=== PATIENT | male | born 1950 | race Caucasian/White ===

== ENCOUNTER 2019-02-08 14:37 | Inpatient (IN) ==
[2019-02-08] MEDS ORDERED: Acetaminophen 325 MG TABLET PO PRN (17:56)
[2019-02-08] MEDS ORDERED: *HR* OxyCODONE Immed Rel 5 MG TABLET PO PRN (17:56)
[2019-02-08] MEDS ORDERED: Naloxone 0.4 MG/ML INJ IVP PRN (17:56)
[2019-02-08] MEDS ORDERED: Ondansetron 4 MG/2 ML VIAL IVP PRN (17:56)
[2019-02-08] MEDS ORDERED: 0.9 % Sodium Chloride 1,000 ML IVC SCH (18:00)
[2019-02-08] MEDS ORDERED: Albuterol 2.5 MG/3 ML NEBULIZER IH PRN (18:05)
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
[2019-02-08 19:41] LABS: Basophils % 0.1 %; Hematocrit 29.7 % (37.5-50.1); Hemoglobin 9.3 g/dL (12.9-16.9); Immature Granulocytes % 0.5 % (0-4); Lymphocytes % 12.3 %; Mean Corpuscular HGB Conc 31.3 g/dL (31.6-35.5); Mean Corpuscular Hemoglobin 26.6 pg (28.0-33.3); Mean Corpuscular Volume 84.9 fL (83.0-100.0); Mean Platelet Volume 10.1 fL (9.4-12.4); Monocytes # 0.6 K/mcL (0.0-1.3); Monocytes % 7.3 %; Neutrophils # 6.7 K/mcL (1.6-8.9); Platelet Count 138 K/mcL (140-400); Red Cell Distribution Width 19.8 % (11.5-14.5); Segmented Neutrophils % 79.8 %
[2019-02-08 19:51] LABS: BUN/Creatinine Ratio 70 (6-26); Blood Urea Nitrogen 82 mg/dL (8-23); Calcium 7.1 mg/dL (8.6-10.3); Carbon Dioxide 16 mEq/L (23-29); Chloride 113 mEq/L (98-107); Glucose 143 mg/dL (70-105); INR 1.6; Osmolality,Calculated 317 (280-300); Potassium 4.5 mEq/L (3.5-5.1); Prothrombin Time 18.2 Seconds (9.4-12.1); Sodium 140 mEq/L (136-145); eGFR For Non-African Americans > 60 (> 60)
[2019-02-08] MEDS: Sucralfate 1 GM TABLET PO SCH (20:48)
[2019-02-08] MEDS: *HR* HYDROcodone/Acet 5/325 mg TABLET PO PRN (20:53)
[2019-02-09 02:02] LABS: Bilirubin,Urine Negative (Negative); Blood,Urine Moderate (Negative); Clarity,Urine Clear (Clear); Color,Urine Yellow (Yellow); Glucose,Urine (UA) Normal (Normal); Ketones,Urine Negative (Negative); Leukocyte Esterase,Urine Negative (Negative); Nitrite,Urine Negative (Negative); PH,Urine 5.5 pH Units (5.0-8.0); Protein,Urine Negative (Neg-Trace); Specific Gravity,Urine 1.017 (1.010-1.025); Urobilinogen,Urine Normal (Normal)
[2019-02-09 02:05] LABS: Bacteria,Urine None Seen per hpf (None-Few); Hyaline Casts,Urine None Seen per lpf (None-Few); RBC,Urine 15-30 per hpf (0-3); Squamous Epithelial Cell,Urine Few per lpf (None-Few); WBC,Urine 0-3 per hpf (0-3)
[2019-02-09] MEDS ORDERED: *HR* Heparin 5,000 UNIT/ML VIAL IVP PRN (03:47)
[2019-02-09] MEDS ORDERED: 0.9 % Sodium Chloride 250 ML IVC ONE (04:09)
[2019-02-09] MEDS: Heparin 25,000 UNIT/250 ML D5W 25,000 UNIT/250 ML IV.SOLN IVC SCH (04:47)
[2019-02-09 05:04] LABS: Hematocrit 26.6 % (37.5-50.1); Hemoglobin 8.4 g/dL (12.9-16.9); Immature Granulocytes % 0.5 % (0-4); Lymphocytes # 0.8 K/mcL (0.6-4.6); Lymphocytes % 12.1 %; Mean Corpuscular HGB Conc 31.6 g/dL (31.6-35.5); Mean Corpuscular Hemoglobin 26.8 pg (28.0-33.3); Mean Corpuscular Volume 84.7 fL (83.0-100.0); Mean Platelet Volume 9.6 fL (9.4-12.4); Monocytes # 0.5 K/mcL (0.0-1.3); Monocytes % 7.3 %; Neutrophils # 5.2 K/mcL (1.6-8.9); Platelet Count 107 K/mcL (140-400); Red Blood Count 3.14 M/mcL (4.19-5.50); Red Cell Distribution Width 19.7 % (11.5-14.5); Segmented Neutrophils % 80.1 %
[2019-02-09 05:15] LABS: Heparin anti-factor XA UFH 0.02 IU/mL (0.30-0.70); INR 1.8; Prothrombin Time 19.9 Seconds (9.4-12.1)
[2019-02-09 05:26] LABS: BUN/Creatinine Ratio 67 (6-26); Blood Urea Nitrogen 74 mg/dL (8-23); Calcium 7.2 mg/dL (8.6-10.3); Carbon Dioxide 18 mEq/L (23-29); Chloride 113 mEq/L (98-107); Glucose 72 mg/dL (70-105); Magnesium 2.3 mg/dL (1.6-2.6); Osmolality,Calculated 310 (280-300); Phosphorous 3.4 mg/dL (2.7-4.5); Potassium 3.8 mEq/L (3.5-5.1); Sodium 140 mEq/L (136-145); eGFR For Non-African Americans > 60 (> 60)
[2019-02-09 05:41] LABS: Thyroid Stimulating Hormone 5.854 mcIU/mL (0.340-5.600)
[2019-02-09] MEDS: Sucralfate 1 GM TABLET PO SCH ×4 (08:13→20:12)
--- NOTE | 2019-02-09 13:22 | Palliative - Consult Note ---
Date of Encounter: 02/09/19 Time of Encounter: 10:00 - Assessment and Plan (1) Weakness Current Visit: No Status: Acute Assessment and plan: Patient reports increased weakness, with frequent falls and losing balance at home. PT/OT/social work consulted. Patient will need [facility] placement at discharge. (2) Palliative care encounter Current Visit: Yes Status: Acute (3) Lung cancer Current Visit: No Status: Acute Assessment and plan: Patient is a current oncology patient of [facility] outpatient. Desires continued cancer treatment at this time. Qualifiers: Laterality: left Lung location: overlapping sites Qualified Code(s): C34.82 - Malignant neoplasm of overlapping sites of left bronchus and lung (4) Pleural effusion Current Visit: No Status: Acute Assessment and plan: Patient reports having frequent recurrent pleural effusions. Patient has history of Pleurx drain. Previous Pleurx was removed due to patient being uncomfortable with drain in place. Patient reports he is agreeable to being "tapped." (5) COPD (chronic obstructive pulmonary disease) Current Visit: No Status: Chronic Qualifiers: COPD type: unspecified COPD Qualified Code(s): J44.9 - Chronic obstructive pulmonary disease, unspecified (6) Malignant cachexia Current Visit: No Status: Acute Assessment and plan: Patient reports lack of appetite. Patient ate 100% of lunch. (7) Goals of care, counseling/discussion Current Visit: No Status: Acute Assessment and plan: Conducted 60 minutes meeting with patient regarding goals of care. Patient reports he wants to continue to try living. Patient desires to continue cancer treatment at this time. Patient reports understanding that cancer treatment is palliative in nature. Patient is interested in discharge plan to go to [facility], unsure whether rehabilitation versus hospice. Patient desires to remain full code at this time. Patient was able to verbalize risks associated with compressions. Patient was previously a DNR order; however, patient reports trying to build relationship with daughters at this taty e. Patient desires to continue living and is okay with CPR for opportunity to spend time with great-grandchildren. Patient's only contact information in the computer at this time is Gopal Pedroza, patient's friend. He is unsure of patient's daughter's phone numbers. Palliative care will continue to follow been worked us with this patient, in regards to symptom management discharge planning. (8) Severe protein-calorie malnutrition Current Visit: No Status: Acute (9) Non-small cell lung cancer (NSCLC) Current Visit: No Status: Chronic Qualifiers: Laterality: left Qualified Code(s): C34.92 - Malignant neoplasm of unspecified part of left bronchus or lung (10) Generalized pain Current Visit: No Status: Acute Assessment and plan: Patient reports bilateral elbow pain. Patient has utilized 1 dose [place] and 0 doses of oxycodone this admission. Continue when necessary pain medication as ordered. (11) Dehydration Current Visit: Yes Status: Acute Assessment and plan: Receiving IV fluids at this time. (12) DVT (deep venous thrombosis) Current Visit: Yes Status: Suspected Assessment and plan: During assessment patient's profound for left lower extremity performed. Patient found to have positive DVT. Patient has heparin drip infusing. Qualifiers: DVT location: lower extremity Affected thrombotic vein of extremity: unspecified vein of extremity Chronicity: unspecified Laterality: left Qualified Code(s): I82.402 - Acute embolism and thrombosis of unspecified deep veins of left lower extremity (13) Anxiety Current Visit: Yes Status: Acute Assessment and plan: Patient apparent to have increased anxiety. We will add low-dose Ativan when necessary. Palliative-CN HPI - Data of Consult Patient: new to practice Consult date: 02/08/19 Requesting Physician: Tiffanie Rodriguez Primary Care Provider: Jerrod Valentino MD - Consult Narrative Palliative Care/Comfort Measures: Palliative care Reason for consult: Code change/terminal illness/palliative chemotherapy cur rently. History of present illness: Mr. Hoover is a 68 year old male whom arrived at [facility] as a transfer from [facility] post fall, EMS found patient stuck between while in bed. Patient's past medical history includes arthritis, cancer, COPD, hyperlipidemia, hypertension, myocardial infarction, hepatitis, irritable bowel syndrome, blood thinners, and DVT. Patient found to be incredibly dehydrated, Acute respiratory failure with hypoxia, generalized pain, hypothyroid, malignant pleural effusion, severe protein calorie malnutrition with noted BMI of 12, weakness, coronary arteries disease, COPD, non-small cell lung cancer, and positive for DVT. Patient is a known patient of [facility] from Jan, 2019 appointment. Patient was originally diagnosed with small cell lung cancer, stage IV adenocarcinoma, at [facility] in September 2018. Patient reports he has not been eating or drinking regularly. Patient has a friend and ex-girlfriend who lives with him, reports not caring for him; patient is very distraught in this regard. Chest x-ray shows nonchanging left pleural effusion [address] shows chronic changes. Social work has been consult, APS will make contacted. Palliative care consult at code change/terminal illness/palliative chemotherapy currently. Patient sitting up in bed, prepping for ultrasound of left lower extremity upon arrival for assessment. Patient reports pain in bilateral elbows due to skin coming off elbows, and images in place. She denies anxiety, shortness of breath, nausea or vomiting. Patient admits to lack of appetite. She reports she was previously in rehabilitation in [facility] Reports facility and rule straight him crazy. Patient also admits he wants to continue to try living, not willing to accept her modality at this time. Patient reports he has 2 daughters, Ariadna and Jaylin, however trying to rebuild relationship with them. Patient reports he previously had DO NOT RESUSCITATE status however now has great-grandchildren and feels necessary to live for them. Patient is alert and oriented 3, however had difficulty confirming orientation to situation. Patient repetitively returns to discussion regarding living status. Patient admits that he will no longer be able to live in his previous home. CC: Tiffanie Rodriguez - Time Spent with Patient Time: Total time spent is greater than 50% in coordination of care (as documented) at patient's floor/unit and/or counseling patient: Time with patient: 60 minutes Past Med Surg Social Fam HX - Past Medical History Medical history: arthritis, cancer, COPD, hyperlipidemia, hypertension, myocardial infarction, other Additional medical history: hepatitis, IBS, blood thinners Psychiatric history: no psych history - Past Surgical History Additional surgical history: 1 cardiac stent, arthroscopy of the knee - Social History Smoking Status: Current every day smoker Smokeless Tobacco Status: No Alcohol use: none Drug use: none - Family History Mother Living Status: Hx Family Cardiac Disorders: Yes (HTN, CHF) Father Living Status: Brother Hx Family Cancer: Yes (Brain, colon) Hx Family Endocrine Disorder: Yes (DM) Sister Hx Family Cancer: Yes (Breast) Daughter Hx Family Cardiac Disorders: Yes (HTN, murmur) Medications and Allergies Warfarin [Coumadin] 3.5 mg PO HS 06/12/17 [History] Atorvastatin Calcium [Lipitor] 80 mg PO HS 11/13/18 [History] Metoprolol [Lopressor] 25 mg PO DAILY 11/13/18 [History] Albuterol Neb [Proventil Neb] 2.5 mg IH Q2H PRN inhsol 11/15/18 [Rx] Diphenoxylate/Atropine [Lomotil 2.5 mg/0.025 mg] 1 tab PO QID 12/13/18 [History] Omeprazole [PriLOSEC] 20 mg PO DAILY 12/13/18 [History] Sucralfate [Carafate] 1 gm PO QIDAC 12/13/18 [History] Allergy/AdvReac Type Severity Reaction Status Date / Time No Known Allergies Allergy Verified 01/29/19 13:07 - Constitutional Constitutional ROS PAL: decreased appetite, frequent falls, weight loss - EENT Eyes: no change in vision, no discharge, no dry eye - Cardiovascular Cardiovascular ROS: no chest pain - Respiratory Respiratory: no dyspnea - Gastrointestinal Gastrointestinal: diarrhea, no nausea, no vomiting - Genitourinary Genitourinary ROS male: no difficulty urinating - Musculoskeletal Musculoskeletal ROS IM: muscle weakness, myalgias - Integumentary ROS Integumentary: dry skin, wounds, no unusual bruising - Neurological Neurological ROS: lack of coordination, weakness - Psychiatric Psychiatric general PM: anxiety Palliative Care-Exam - Constitutional Vitals: Temp Pulse Resp BP Pulse Ox 97.5 F L 56 16 102/53 96 02/09/19 11:00 02/09/19 11:00 02/09/19 11:00 02/09/19 11:00 02/09/19 11:00 General appearance: Present: mild distress, thin - Head Head Exam: Present: normal inspection - Eye Eye exam: Present: EOMI, normal appearance. Absent: periorbital swelling, periorbital tenderness - ENT ENT exam: Present: mucous membranes dry - Expanded ENT Exam Mouth Exam: Present: dry mucosa. Absent: drooling - Neck Neck exam: Present: normal inspection - Respiratory Respiratory exam: Present: accessory muscle use, CTAB. Absent: respiratory distress - Cardiovascular Cardiovascular exam: Present: +S1, +S2 - GI/Abdominal Exam GI/Abdominal exam: Present: diminished bowel sounds, soft. Absent: distended, tenderness - Rectal Rectal Exam: Present: deferred - Extremities Exam Extremities exam: Present: calf tenderness (left, positive for DVT), pedal edema (LLE only.) - Neurological Exam Neurological exam: Present: alert, oriented X3. Absent: facial droop, speech deficit - Expanded Neurological Exam Coma Scale Eye Opening: Spontaneous Coma Scale Motor Response: Obeys Commands Coma Scale Verbal Response: Oriented Coma Scale Total: 15 - Psychiatric Psychiatric exam: Present: anxious Internal Medicine - CN: Reslt - Labs CBC & Chem 7: 02/09/19 04:42 02/09/19 04:42 Labs: Short CBC 02/08/19 02/09/19 Range/Units 19:01 04:42 WBC 8.5 6.5 (4.3-11.1) K/mcL Hgb 9.3 L 8.4 L (12.9-16.9) g/dL Hct 29.7 L 26.6 L (37.5-50.1) % Plt Count 138 L 107 L (140-400) K/mcL Neutrophils # 6.7 5.2 (1.6-8.9) K/mcL BMP 02/08/19 02/09/19 19:01 04:42 Sodium 140 140 Potassium 4.5 3.8 Chloride 113 H 113 H Carbon Dioxide 16 L 18 L BUN 82 H 74 H Creatinine 1.17 1.10 Glucose 143 H 72 Calcium 7.1 L 7.2 L Urine 02/09/19 Range/Units 01:44 Urine Color Yellow (Yellow) Urine Clarity Clear (Clear) Urine pH 5.5 (5.0-8.0) pH Units Ur Specific [place] 1.017 (1.010-1.025) Urine Protein Negative (Neg-Trace) mg/dL Urine Glucose (UA) Normal (Normal) mg/dL - ABG Interpretation ABG results: PT/INR, D-dimer PT 19.9 Seconds (9.4-12.1) H 02/09/19 04:42 - Impressions Impressions Head CT 02/08/19 19:00 IMPRESSION: No acute intracranial abnormality. Mild generalized cerebral atrophy and mild chronic small vessel white matter ischemic changes. D/ / Jose Barreto MD / Jose Barreto MD Interpreting Provider: Jose Barreto MD Chest X-Ray 02/09/19 08:00 IMPRESSION: Unchanged appearance of the chest over the past 11 days. Unchanged moderate size left pleural effusion with adjacent left perihilar and basilar airspace disease. D/ / Brennon Anderson MD / Brennon Anderson MD Interpreting Provider: Brennon Anderson MD Consult Discharge Plan - Plan Referrals: Jerrod Valentino MD [Primary Care Provider] - Palliative Quality Palliative Quality: Screen for Code Status: Yes, Screen for Goals of Care: Yes, Screen for Pain: Yes, If Pain Regimen Started, Initiate Bowel Regimen: NA, Screen for Nausea/Vomitting: Yes Code Status: 02/08/19 17:56 Resuscitation Status: Active [RES] Routine Comment: Resuscitation Status: Full Code
--- NOTE | 2019-02-09 13:51 | Internal Med Progress Note ---
Hospitalist Progress Note - Encounter Date of Encounter: 02/09/19 Time of Encounter: 09:00 - Subjective Interval History: Patient was seen and examined at bedside. Reports that he used to have a Pleurx catheter however the output from the catheter had decreased so as per his request it was removed. He follows up with oncology here at [facility] er. Last appointment was about a week ago. He developed shortness of breath and as per medical chart he was found stuck between the the bed so he was transferred to [facility] from [place]. He denies any head trauma, loss of function of his extremities, loss of bowel or bladder function. He has no anxiety, shortness of breath, nausea or vomiting. Patient admits to lack of appetite and significant weight loss in the past few months. - Exam Vitals: Temp Pulse Resp BP Pulse Ox 97.5 F L 56 16 102/53 96 02/09/19 11:00 02/09/19 11:00 02/09/19 11:00 02/09/19 11:00 02/09/19 11:00 Exam: General: Patient is alert, oriented, no acute distress, cachectic Head: atraumatic, normocephalic, Eye: normal appearance, PERRL, no scleral icterus, no conjunctival injection ENT: Poor dentition, dry mucous membranes. Neck: normal inspection, trachea midline, full ROM, Chest: normal inspection, symmetric chest rise Respiratory: Decreased breath sounds left greater than right, crackles throughout the left posterior lung field. A list to percussion of the left lower lung field Cardiovascular: Regular rate and rhythm. s1 and s2 No clicks, rubs, gallops, or murmors. Abdomen: Scaphoid abdomen, Bowel sounds present normoactive x-4 quadrants. Abdomen is soft, nondistended. no Epigastric tenderness. No guarding or rebound. No organomegaly noted, musculoskeletal: Spontaneously moving all extremities. no edema, left lower extremity from feet up to mid thigh has increased swelling as compared to the right lower extremity, nontender to palpation, no color change Skin: warm, dry, intact. Multiple ecchymosis and bruising in all extremities at different stages of healing. Neuro: Alert and oriented x4. No focal deficit Psych: Patient's affect is normal . - Assessment and Plan (1) Malignant pleural effusion Current Visit: No Status: Acute Assessment and Plan: Malignant left sided pleural effusion History of recurrent pleural effusion secondary to malignancy. As per oncology note on 01/29/19- "Recurrent left pleural effusion. He had a chest tube the hospital October 2018 which was converted to a Pleurx catheter. According to him the Pleurx drainage has reduced and subsequently Pleurx catheter was removed at patient's request" Continue with oxygen via nasal cannula, currently not in respiratory distress IR has been consult for thoracentesis will follow recommendations (2) Acute respiratory failure with hypoxia Current Visit: No Status: Acute Assessment and Plan: Secondary to malignant pleural effusion. Patient has a history of lung cancer appears he has a pleural effusion on chest x-ray he was 90% on room air requiring oxygen supplementation. He will need a thoracentesis per IR Continue with oxygen via nasal cannula and keep sats above 92%. (3) DVT (deep venous thrombosis) Current Visit: Yes Status: Suspected Assessment and Plan: Pt. is Positive for DVT in the Left CVF,SFV,Popliteal,PTV and Peroneal Veins. Continue with heparin drip as CT head was negative for any acute abnormalities. Recent CT angiogram of the chest was negative for pulmonary embolism. (4) Non-small cell lung cancer (NSCLC) Current Visit: No Status: Chronic Assessment and Plan: Stage IV adenocarcinoma of the lung PET scan at [facility] 10/21/2018 showed large 4 cm cavitary lesion right upper lobe and left pleural effusion with multiple foci of increased FDG. Hypermetabolic [place] in the left upper load is indeterminate. Hypermetabolic left internal mammary and subpectoral lymph nodes. MRI brain on 11/12/[address] scan chest abdomen pelvis on 11/11/2018 showed thick walled cavitary nodule posterior right upper lobe 2.8 x 1.8 cm. Large left pleural effusion receiving Pembrolizumab 200 mg IV every 3 weeks cycle 2018 Recurrent left pleural effusion had chest tube October 2018 which is converted to Pleurx catheter which was removed at patient's request Follows with oncology [facility] last appointment was 01/29/2019 brain MRI on 10/2090- IMPRESSION: No intracranial metastasis detected. oncology consulted will follow recs (5) Severe protein-calorie malnutrition Current Visit: No Status: Acute Assessment and Plan: Patient BMI is 12 he is not unit several days face he has been having diarrhea had a 40 pound weight loss over the sixth months. prealbumin 7.6 Nutritional services consulted Continue with gentle hydration Watch electrolytes as he is high risk for refeeding syndrome. (6) CAD (coronary artery disease) Current Visit: No Status: Chronic Assessment and Plan: History of CAD with stent placements Continue with home medications if not contraindicated (7) COPD (chronic obstructive pulmonary disease) Current Visit: No Status: Chronic Assessment and Plan: Not an exacerbation Patient continues to smoke encouraged patient to stop smoking nicotine patch Continue with oxygen and bronchodilators as needed (8) Dehydration Current Visit: Yes Status: Acute Assessment and Plan: Continue with gentle hydration Avoid fluid overload. (9) Generalized pain Current Visit: No Status: Acute Assessment and Plan: Continue with pain management medications Palliative was consulted will follow recommendations Hold pain medications for respiratory rate less than 12 and saturations less than 92%. (10) Hypothyroidism Current Visit: No Status: Acute Assessment and Plan: Continue with Synthroid (11) Goals of care, counseling/discussion Current Visit: No Status: Acute Assessment and Plan: Discussed CODE STATUS with patient at length and he wishes to be full code Palliative was consulted for goals of care and pain management Prognosis is poor (12) Tobacco dependence Current Visit: No Status: Chronic Assessment and Plan: Patient states that he used to be a pack-a-day smoker for 40 years now healing smokes 3-4 cigarettes a day encouraged patient to stop smoking offer nicotine patch which he declined (13) DVT prophylaxis Current Visit: No Status: Acute Assessment and Plan: On heparin drip - Time Spent with Patient Total time spent is greater than 50% in coordination of care (as documented) at patient's floor/unit and/or counseling patient: Internal Medicine: Result - Labs CBC & Chem 7: 02/09/19 04:42 02/09/19 04:42 Labs: Short CBC 02/08/19 02/09/19 Range/Units 19:01 04:42 WBC 8.5 6.5 (4.3-11.1) K/mcL Hgb 9.3 L 8.4 L (12.9-16.9) g/dL Hct 29.7 L 26.6 L (37.5-50.1) % Plt Count 138 L 107 L (140-400) K/mcL Neutrophils # 6.7 5.2 (1.6-8.9) K/mcL BMP 02/08/19 02/09/19 19:01 04:42 Sodium 140 140 Potassium 4.5 3.8 Chloride 113 H 113 H Carbon Dioxide 16 L 18 L BUN 82 H 74 H Creatinine 1.17 1.10 Glucose 143 H 72 Calcium 7.1 L 7.2 L Urine 02/09/19 Range/Units 01:44 Urine Color Yellow (Yellow) Urine Clarity Clear (Clear) Urine pH 5.5 (5.0-8.0) pH Units Ur Specific [place] 1.017 (1.010-1.025) Urine Protein Negative (Neg-Trace) mg/dL Urine Glucose (UA) Normal (Normal) mg/dL - ABG Interpretation ABG results: PT/INR, D-dimer PT 19.9 Seconds (9.4-12.1) H 02/09/19 04:42 - Impressions Impressions Head CT 02/08/19 19:00 IMPRESSION: No acute intracranial abnormality. Mild generalized cerebral atrophy and mild chronic small vessel white matter ischemic changes. D/ / Jose Barreto MD / Jose Barreto MD Interpreting Provider: Jose Barreto MD Chest X-Ray 02/09/19 08:00 IMPRESSION: Unchanged appearance of the chest over the past 11 days. Unchanged moderate size left pleural effusion with adjacent left perihilar and basilar airspace disease. D/ / Brennon Anderson MD / Brennon Anderson MD Interpreting Provider: Brennon Anderson MD Consult Discharge Plan - Plan Referrals: Jerrod Valentino MD [Primary Care Provider] - (3) DVT (deep venous thrombosis) Qualifiers: DVT location: lower extremity Affected thrombotic vein of extremity: popliteal Chronicity: acute Laterality: left Qualified Code(s): I82.432 - Acute embolism and thrombosis of left popliteal vein (4) Non-small cell lung cancer (NSCLC) Qualifiers: Laterality: left Qualified Code(s): C34.92 - Malignant neoplasm of unspecified part of left bronchus or lung (6) CAD (coronary artery disease) Qualifiers: Coronary Disease-Associated Artery/Lesion type: unspecified vessel or lesion type [place] vs. transplanted heart: [place] heart Associated angina: without angina Qualified Code(s): I25.10 - Atherosclerotic heart disease of [place] coronary artery without angina pectoris (7) COPD (chronic obstructive pulmonary disease) Qualifiers: COPD type: unspecified COPD Qualified Code(s): J44.9 - Chronic obstructive pulmonary disease, unspecified (10) Hypothyroidism Qualifiers: Hypothyroidism type: unspecified Qualified Code(s): E03.9 - Hypothyroidism, unspecified
[2019-02-09] MEDS ORDERED: 0.9 % Sodium Chloride 1,000 ML IVC SCH (14:15)
[2019-02-09] MEDS: *HR* HYDROcodone/Acet 5/325 mg TABLET PO PRN (15:56)
[2019-02-09] MEDS ORDERED: Warfarin perPT PO PRN (18:00)
[2019-02-09] MEDS: *HR* Heparin 5,000 UNIT/ML VIAL IVP PRN (20:12)
[2019-02-10 01:52] LABS: Hematocrit 27.4 % (37.5-50.1); Hemoglobin 8.6 g/dL (12.9-16.9); Mean Corpuscular HGB Conc 31.4 g/dL (31.6-35.5); Mean Corpuscular Hemoglobin 26.5 pg (28.0-33.3); Mean Corpuscular Volume 84.3 fL (83.0-100.0); Mean Platelet Volume 9.7 fL (9.4-12.4); Platelet Count 121 K/mcL (140-400); Red Blood Count 3.25 M/mcL (4.19-5.50); Red Cell Distribution Width 19.7 % (11.5-14.5)
[2019-02-10 01:58] LABS: VBG Ionized Calcium 1.12 mmol/L (1.15-1.35)
[2019-02-10 02:12] LABS: Alanine Aminotransferase 44 Units/L (7-52); Albumin 2.1 g/dL (3.5-5.7); Albumin/Globulin Ratio 0.7 (1.1-2.2); Alkaline Phosphatase 125 Units/L (34-104); Aspartate Amino Transferase 59 Units/L (13-39); BUN/Creatinine Ratio 62 (6-26); Bilirubin,Total 0.3 mg/dL (0.3-1.0); Blood Urea Nitrogen 53 mg/dL (8-23); Calcium 6.7 mg/dL (8.6-10.3); Carbon Dioxide 20 mEq/L (23-29); Chloride 113 mEq/L (98-107); Globulin 2.9 g/dL (2.4-3.5); Glucose 58 mg/dL (70-105); Magnesium 2.1 mg/dL (1.6-2.6); Osmolality,Calculated 302 (280-300); Phosphorous 2.1 mg/dL (2.7-4.5); Potassium 3.6 mEq/L (3.5-5.1); Sodium 140 mEq/L (136-145); eGFR For Non-African Americans > 60 (> 60)
[2019-02-10] MEDS: *HR* Heparin 5,000 UNIT/ML VIAL IVP PRN (03:41)
[2019-02-10] MEDS: *HR* HYDROcodone/Acet 5/325 mg TABLET PO PRN (05:38)
[2019-02-10] MEDS: Sucralfate 1 GM TABLET PO SCH ×4 (09:06→22:20)
[2019-02-10] MEDS: Heparin 25,000 UNIT/250 ML D5W 25,000 UNIT/250 ML IV.SOLN IVC SCH ×2 (09:07→21:45)
[2019-02-10 09:23] LABS: INR 1.6; Prothrombin Time 17.6 Seconds (9.4-12.1)
--- NOTE | 2019-02-10 12:31 | Oncology Inp Consult Note ---
<Hansel Cates - Last Filed: 02/10/19 17:49> Date of Encounter: 02/10/19 - Data of Consult Requesting Physician: Tiffanie Rodriguez Primary Care Provider: Jerrod Valentino MD Medications and Allergies Atorvastatin Calcium [Lipitor] 80 mg PO HS 11/13/18 [History] Bupropion HCl [Wellbutrin Xl] 300 mg PO DAILY 02/10/19 [History] Buspirone HCl [Buspar] 15 mg PO BID 02/10/19 [History] Folic Acid 1 mg PO DAILY 02/10/19 [History] Ipratropium/Albuterol Neb [Duoneb] 3 ml IH Q8HR PRN 02/10/19 [History] Levothyroxine [Synthroid] 50 mcg PO QAM 02/10/19 [History] Metoprolol XL (24 HR) Succ [Toprol XL] 25 mg PO DAILY 02/10/19 [History] Oxycodone HCl/Acetaminophen [Percocet 5-325 mg Tablet] 1 tab PO Q4H PRN 02/10/19 [History] Sertraline [Zoloft] 50 mg PO DAILY 02/10/19 [History] Warfarin [Coumadin] 1 mg PO DAILY 02/10/19 [History] Allergy/AdvReac Type Severity Reaction Status Date / Time No Known Allergies Allergy Verified 01/29/19 13:07 Consult Discharge Plan - Plan Referrals: Jerrod Valentino MD [Primary Care Provider] - Inpatient Charges Provider: Dr. Bhavna Cates Consult - Inpatient: [id number] - Attending Attestation I examined this patient and my medical decision-making was reviewed with the Advanced Practice Nurse. I agree with the documented findings, disposition and treatment plan as described except to the extent set forth below. -Patient with Stage IV Adenocarcinoma of the lung with progressive disease -Admitted for weakness and found to have a LLE DVT, now on a heparin gtt -We discuss palliative care and hospice with him today and he is agreeable to have palliative care come by to discuss future goals of care -Will perform an anemia w/u -Thoracentesis attempted but not done as pleural fluid was not seen. <Renu Hester - Last Filed: 02/10/19 18:22> Date of Encounter: 02/10/19 Time of Encounter: 11:10 Assessment and Plan (1) Non-small cell lung cancer (NSCLC) Status: Chronic Assessment and plan: Stage IV adenocarcinoma lung Patient was followed for lung nodules for long time. On 12/14/2017 left upper lobe 1.1 cm nodule SUV 3.6 has grown in size since May 2016. Left upper lobe 6 mm nodule and a new right middle lobe 1.4 cm cavitary nodule SUV 7.7 since May 2016. Focus of hypermetabolic some GE junction SUV 5.4 More recent PET scan at [facility] in [place] 10/21/2018 showed large about 4cm cavitary lesion right upper lobe and left pleural effusion with multiple foci of increased FDG. Hypermetabolic opacity in the left upper lobe is indeterminate. Hypermetabolic left internal mammary and subpectoral lymph nodes. Reviewed [facility] notes by Dr. Grant Fuller. Metastatic lung adenocarcinoma with positive left pleural effusion for K-michael and ST-T 11 mutation. PD L1 positive. 40 pound weight loss. He wants to start him on Pembrolizumab MRI brain on 11/12/[address] scan chest abdomen and pelvis on 11/11/2018 showed thick walled cavitary nodule posterior right upper lobe 2.8 x 1.8 cm. Large left pleural effusion. Also brain MRI during this admission on October 2018 negative for metastasis He will be consistent with stage IV disease given bilateral lung lesions which are metabolically active. Pathology from the left pleural fluid analysis showed malignant cells consistent with lung adenocarcinoma on 11/12/2018. TTF-1 positive Treatment Intent: Palliative Number of cycles: Indefinite Pembrolizumab 200 mg IV day 1 Cycle repeated every 3 weeks Cycle 1 on 11/27/2018 Cycle 4 today 01/29/2019. Plan: Hold treatment while inpatient. Palliative Care consulted. Qualifiers: Laterality: left Qualified Code(s): C34.92 - Malignant neoplasm of unspecified part of left bronchus or lung (2) Severe protein-calorie malnutrition Status: Acute Assessment and plan: Patient with progressive weight loss. He states that his normal weight was 141 lbs, declining to approximately 100 lbs at diagnosis. Plan: Consult records custodian for recommendations. Daily weights. (3) Weakness Status: Acute Assessment and plan: Patient notes weakness after Keytruda infusion. Unable to care for himself at home. Plan: PT/OT evaluation. Management and care-coordination per primary team. (4) Anemia Status: Acute Assessment and plan: Hgb 8.6/Hct 27.4 Plan: Anemia work-up: iron profile, ferritin, B12, and folate Monitor CBC daily. Qualifiers: Anemia type: unspecified type Qualified Code(s): D64.9 - Anemia, unspecified - Data of Consult Patient: known to practice within the last 3 years Requesting Physician: Tiffanie Rodriguez Primary Care Provider: Jerrod Valentino MD - Consult Narrative Reason for consult: NSCLC History of present illness: HPI: Mr. Hoover, a 68 yo male with metastatic NSCLC. per report, he presented to an OSH via EMS after being found trapped between a wall and the bed. He was too weak to get out of bed to use the bathroom. Mr. Hoover is alert and oriented, but states that he does not recall what brought him to the hospital. He is emaciated. He states that he is unsure if he has been following [facility] He notes that he was 141 lbs at his baseline, but has continued with weight loss. He denies nausea, vomiting, diarrhea, constipation, or abdominal pain. He denies fever or chills. He is currently on a heparin drip for a LLE DVT. He notes that he was aware of a DVT in his LLE. Oncology history: Stage IV adenocarcinoma lung Patient was followed for lung nodules for long time. On 12/14/2017 left upper lobe 1.1 cm nodule SUV 3.6 has grown in size since May 2016. Left upper lobe 6 mm nodule and a new right middle lobe 1.4 cm cavitary nodule SUV 7.7 since May 2016. Focus of hypermetabolic some GE junction SUV 5.4 More recent PET scan at [facility] 10/21/2018 showed large about 4cm cavitary lesion right upper lobe and left pleural effusion with multiple foci of increased FDG. Hypermetabolic opacity in the left upper lobe is indeterminate. Hypermetabolic left internal mammary and subpectoral lymph nodes. Reviewed [facility] notes by Dr. Grant Fuller. Metastatic lung adenocarcinoma with positive left pleural effusion for K-michael and ST-T 11 mutation. PD L1 positive. 40 pound weight loss. He wants to start him on Pembrolizumab. MRI brain on 11/12/[address] scan chest abdomen and pelvis on 11/11/2018 showed thick walled cavitary nodule posterior right upper lobe 2.8 x 1.8 cm. Large left pleural effusion. Also brain MRI during this admission on October 2018 negative for metastasis He will be consistent with stage IV disease given bilateral lung lesions which are metabolically active. Pathology from the left pleural fluid analysis showed malignant cells consistent with lung adenocarcinoma on 11/12/2018. TTF-1 positive Treatment Intent: Palliative Number of cycles: Indefinite Pembrolizumab 200 mg IV day 1 Cycle repeated every 3 weeks Cycle 1 on 11/27/2018 Cycle 4 today 01/29/2019. Social history: Smoking: Decreased from 3ppd at diagnosis to 2-3 cigarettes per day. Alcohol use: denies Past Med Surg Social Fam HX - Past Medical History Medical history: arthritis, cancer, COPD, hyperlipidemia, hypertension, myoca rdial infarction, other Additional medical history: hepatitis, IBS, blood thinners Psychiatric history: no psych history - Past Surgical History Additional surgical history: 1 cardiac stent, arthroscopy of the knee - Social History Smoking Status: Current every day smoker Smokeless Tobacco Status: No Alcohol use: none Drug use: none - Family History Mother Living Status: Hx Family Cardiac Disorders: Yes (HTN, CHF) Father Living Status: Brother Hx Family Cancer: Yes (Brain, colon) Hx Family Endocrine Disorder: Yes (DM) Sister Hx Family Cancer: Yes (Breast) Daughter Hx Family Cardiac Disorders: Yes (HTN, murmur) Constitutional: Present: fatigue, weakness, weight loss Cardiovascular: Present: dyspnea, dyspnea on exertion, edema Respiratory: Present: dyspnea on exertion Gastrointestinal: Present: diarrhea. Absent: abdominal pain, constipation, hematemesis, hematochezia, melena, nausea, vomiting Genitourinary: Absent: urinary frequency, urinary hesitancy, urinary urgency Musculoskeletal: Present: muscle weakness Neurological: Present: weakness. Absent: headache(s), syncope Endocrine: Present: fatigue Oncology - Exam - Constitutional Exam: emaciated - Respiratory Respiratory exam: Present: decreased breath sounds, rhonchi - Cardiovascular Cardiovascular exam: Present: RRR - GI/Abdominal GI/Abdominal exam: Present: normal bowel sounds, soft Additional comments: flat - Extremities Exam Additional comments: LLE edema - Neurological Exam Neurological exam: Present: alert, oriented X3 Additional comments: generalized weakness - Psychiatric Psychiatric exam: Present: anxious - Skin Skin exam: Present: dry, erythema, pallor, warm Additional comments: ecchymosis Oncology Inpatient Results Labs: Laboratory Results - last 24 hr 02/09/19 02/10/19 02/10/19 19:09 01:35 01:35 WBC 5.9 RBC 3.25 L Hgb 8.6 L Hct 27.4 L MCV 84.3 MCH 26.5 L MCHC 31.4 L RDW 19.7 H Plt Count 121 L MPV 9.7 PT INR Heparin Anti-Xa, Unfract 0.03 L Sodium 140 Potassium 3.6 Chloride 113 H Carbon Dioxide 20 L BUN 53 H Creatinine 0.85 Est GFR ( Amer) > 60 Est GFR (Non-Af Amer) > 60 BUN/Creatinine Ratio 62 H Glucose 58 L Calculated Osmolality 302 H Calcium 6.7 L Venous Ioniz Calcium Phosphorus 2.1 L Magnesium 2.1 Total Bilirubin 0.3 AST 59 H ALT 44 Alkaline Phosphatase 125 H Serum Total Protein 5.0 L Albumin 2.1 L Globulin 2.9 Albumin/Globulin Ratio 0.7 L 25-OH Vitamin D Total 02/10/19 02/10/19 02/10/19 01:35 01:35 01:50 WBC RBC Hgb Hct MCV MCH MCHC RDW Plt Count MPV PT INR Heparin Anti-Xa, Unfract 0.08 L Sodium Potassium Chloride Carbon Dioxide BUN Creatinine Est GFR ( Amer) Est GFR (Non-Af Amer) BUN/Creatinine Ratio Glucose Calculated Osmolality Calcium Venous Ioniz Calcium 1.12 L Phosphorus Magnesium Total Bilirubin AST ALT Alkaline Phosphatase Serum Total Protein Albumin Globulin Albumin/Globulin Ratio 25-OH Vitamin D Total 39 02/10/19 02/10/19 08:31 09:45 WBC RBC Hgb Hct MCV MCH MCHC RDW Plt Count MPV PT 17.6 H INR 1.6 Heparin Anti-Xa, Unfract 0.26 L Sodium Potassium Chloride Carbon Dioxide BUN Creatinine Est GFR ( Amer) Est GFR (Non-Af Amer) BUN/Creatinine Ratio Glucose Calculated Osmolality Calcium Venous Ioniz Calcium Phosphorus Magnesium Total Bilirubin AST ALT Alkaline Phosphatase Serum Total Protein Albumin Globulin Albumin/Globulin Ratio 25-OH Vitamin D Total
--- NOTE | 2019-02-10 13:10 | Internal Med Progress Note ---
Hospitalist Progress Note - Encounter Date of Encounter: 02/10/19 Time of Encounter: 08:00 - Subjective Interval History: Patient was seen and examined at bedside. All questions answered. Tolerating by mouth diet, denies any pain. Discussed plan of care with the patient and he is in agreement to have IR guided thoracocentesis with Pleurx catheter placement for recurrent left-sided pleural effusion. I discussed that if contacted his oncologist to works at [facility] and they will see him while he is inpatient. Currently he denies any fever, chills, nausea, vomiting or diarrhea. He has had no chest pain and shortness of breath is currently at baseline. Denies any hemoptysis or hematochezia. - Exam Vitals: Temp Pulse Resp BP Pulse Ox 97.9 F 63 18 101/63 96 02/10/19 11:08 02/10/19 11:08 02/10/19 11:08 02/10/19 11:08 02/10/19 11:08 Exam: General: Patient is alert, oriented, no acute distress, cachectic Head: atraumatic, normocephalic, Eye: normal appearance, PERRL, no scleral icterus, no conjunctival injection ENT: Poor dentition, dry mucous membranes. Neck: normal inspection, trachea midline, full ROM, Chest: normal inspection, symmetric chest rise Respiratory: Decreased breath sounds left greater than right, crackles throughout the left posterior lung field. A list to percussion of the left lower lung field Cardiovascular: Regular rate and rhythm. s1 and s2 No clicks, rubs, gallops, or murmors. Abdomen: Scaphoid abdomen, Bowel sounds present normoactive x-4 quadrants. Abdomen is soft, nondistended. no Epigastric tenderness. No guarding or rebound. No organomegaly noted, musculoskeletal: Spontaneously moving all extremities. no edema, left lower extremity from feet up to mid thigh has increased swelling as compared to the r ight lower extremity, nontender to palpation, no color change Skin: warm, dry, intact. Multiple ecchymosis and bruising in all extremities at different stages of healing. Neuro: Alert and oriented x4. No focal deficit Psych: Patient's affect is normal . - Assessment and Plan (1) Malignant pleural effusion Current Visit: No Status: Acute Assessment and Plan: Malignant left sided pleural effusion History of recurrent pleural effusion secondary to malignancy. As per oncology note on 01/29/19- "Recurrent left pleural effusion. He had a chest tube the hospital October 2018 which was converted to a Pleurx catheter. According to him the Pleurx drainage has reduced and subsequently Pleurx catheter was removed at patient's request" Continue with oxygen via nasal cannula, currently not in respiratory distress IR has been consult for thoracentesis will follow recommendations (2) Acute respiratory failure with hypoxia Current Visit: No Status: Acute Assessment and Plan: Secondary to malignant pleural effusion. Patient has a history of lung cancer appears he has a pleural effusion on chest x-ray he was 90% on room air requiring oxygen supplementation. He will need a thoracentesis per IR Continue with oxygen via nasal cannula and keep sats above 92%. (3) DVT (deep venous thrombosis) Current Visit: Yes Status: Suspected Assessment and Plan: Pt. is Positive for DVT in the Left CVF,SFV,Popliteal,PTV and Peroneal Veins. Continue with heparin drip as CT head was negative for any acute abnormalities. Recent CT angiogram of the chest was negative for pulmonary embolism. (4) Non-small cell lung cancer (NSCLC) Current Visit: No Status: Chronic Assessment and Plan: Stage IV adenocarcinoma of the lung PET scan at [facility] 10/21/2018 showed large 4 cm cavitary lesion right upper lobe and left pleural effusion with multiple foci of increased FDG. Hypermetabolic [place] in the left upper load is indeterminate. Hypermetabolic left internal mammary and subpectoral lymph nodes. MRI brain on 11/12/[address] scan chest abdomen pelvis on 11/11/2018 showed thick walled cavitary nodule posterior right upper lobe 2.8 x 1.8 cm. Large left pleural effusion receiving Pembrolizumab 200 mg IV every 3 weeks cycle 2018 Recurrent left pleural effusion had chest tube October 2018 which is converted to Pleurx catheter which was removed at patient's request Follows with oncology Isabella last appointment was 01/29/2019 brain MRI on 10/2090- IMPRESSION: No intracranial metastasis detected. oncology consulted will follow recs (5) Severe protein-calorie malnutrition Current Visit: No Status: Acute Assessment and Plan: Patient BMI is 12 he is not unit several days face he has been having diarrhea had a 40 pound weight loss over the sixth months. prealbumin 7.6 Nutritional services consulted Continue with gentle hydration Watch electrolytes as he is high risk for refeeding syndrome. (6) CAD (coronary artery disease) Current Visit: No Status: Chronic Assessment and Plan: History of CAD with stent placements Continue with home medications if not contraindicated (7) COPD (chronic obstructive pulmonary disease) Current Visit: No Status: Chronic Assessment and Plan: Not an exacerbation Patient continues to smoke encouraged patient to stop smoking nicotine patch Continue with oxygen and bronchodilators as needed (8) Dehydration Current Visit: Yes Status: Acute Assessment and Plan: Continue with gentle hydration Avoid fluid overload. (9) Generalized pain Current Visit: No Status: Acute Assessment and Plan: Continue with pain management medications Palliative on board Hold pain medications for respiratory rate less than 12 and saturations less than 92%. (10) Hypothyroidism Current Visit: No Status: Acute Assessment and Plan: TSH is mildly elevated Pa[place] secondary to acute illness To have thyroid functions test repeated in 4 weeks by PCP to consider starting Synthroid as per their discretion. (11) Goals of care, counseling/discussion Current Visit: No Status: Acute Assessment and Plan: Discussed CODE STATUS with patient at length and he wishes to be full code Palliative was consulted for goals of care and pain management Prognosis is poor (12) Tobacco dependence Current Visit: No Status: Chronic Assessment and Plan: Patient states that he used to be a pack-a-day smoker for 40 years now healing smokes 3-4 cigarettes a day encouraged patient to stop smoking offer nicotine patch which he declined (13) Hypophosphatemia Current Visit: Yes Status: Acute Assessment and Plan: Was replaced continue to follow and replace as needed (14) Hypocalcemia Current Visit: Yes Status: Acute Assessment and Plan: Started on calcium supplementation Vitamin D is within normal limit 39 (15) DVT prophylaxis Current Visit: No Status: Acute Assessment and Plan: On heparin drip - Time Spent with Patient Total time spent is greater than 50% in coordination of care (as documented) at patient's floor/unit and/or counseling patient: Internal Medicine: Result - Labs CBC & Chem 7: 02/10/19 01:35 02/10/19 01:35 Labs: Short CBC 02/10/19 Range/Units 01:35 WBC 5.9 (4.3-11.1) K/mcL Hgb 8.6 L (12.9-16.9) g/dL Hct 27.4 L (37.5-50.1) % Plt Count 121 L (140-400) K/mcL BMP 02/10/19 01:35 Sodium 140 Potassium 3.6 Chloride 113 H Carbon Dioxide 20 L BUN 53 H Creatinine 0.85 Glucose 58 L Calcium 6.7 L Liver Function 02/10/19 Range/Units 01:35 Total Bilirubin 0.3 (0.3-1.0) mg/dL AST 59 H (13-39) Units/L ALT 44 (7-52) Units/L Alkaline Phosphatase 125 H (34-104) Units/L Albumin 2.1 L (3.5-5.7) g/dL - ABG Interpretation ABG results: PT/INR, D-dimer PT 17.6 Seconds (9.4-12.1) H 02/10/19 08:31 Consult Discharge Plan - Plan Referrals: Jerrod Valentino MD [Primary Care Provider] - (3) DVT (deep venous thrombosis) Qualifiers: DVT location: lower extremity Affected thrombotic vein of extremity: popl iteal Chronicity: acute Laterality: left Qualified Code(s): I82.432 - Acute embolism and thrombosis of left popliteal vein (4) Non-small cell lung cancer (NSCLC) Qualifiers: Laterality: left Qualified Code(s): C34.92 - Malignant neoplasm of unspecified part of left bronchus or lung (6) CAD (coronary artery disease) Qualifiers: Coronary Disease-Associated Artery/Lesion type: unspecified vessel or lesion type [place] vs. transplanted heart: [place] heart Associated angina: without angina Qualified Code(s): I25.10 - Atherosclerotic heart disease of [place] coronary artery without angina pectoris (7) COPD (chronic obstructive pulmonary disease) Qualifiers: COPD type: unspecified COPD Qualified Code(s): J44.9 - Chronic obstructive pulmonary disease, unspecified (10) Hypothyroidism Qualifiers: Hypothyroidism type: unspecified Qualified Code(s): E03.9 - Hypothyroidism, unspecified
--- NOTE | 2019-02-10 14:51 | Event Note ---
Date of Encounter: 02/10/19 Time of Encounter: 14:51 Patient did not undergo thoracentesis due to absent pleural fluid on ultrasound.
--- NOTE | 2019-02-10 16:43 | Palliative Progress Note ---
Date of Encounter: 02/10/19 Time of Encounter: 09:30 - Assessment and plan (1) Goals of care, counseling/discussion Current Visit: No Status: Acute Assessment and plan: 20 minutes discussion with patient to better define goals of care and surrogate decision maker. Patient does want to continue his cancer treatment. He also stat es that he will be living alone once he lives the hospital, and does not want to go to rehab. Explained to patient that based on his history of weakness and falls, he may not be safe to be discharged home alone. However PT/OT consult is in place. Patient does not seam to understand the concept of surrogate decision maker, after lengthy explanations, he decided he would like his older daughter to be his decision maker, however he does not have a phone number or address for her. Offered to call friend and emergency contact Gopal Pedroza for discussion, patient refused. Palliative care will continue to follow. (2) Palliative care encounter Current Visit: Yes Status: Acute (3) Generalized pain Current Visit: No Status: Acute Assessment and plan: Pain is well managed with few doses of norco prn. (4) Malignant pleural effusion Current Visit: No Status: Acute Assessment and plan: Patient scheduled for thoracenthesis today. (5) Malignant cachexia Current Visit: No Status: Acute Assessment and plan: Patient states his appetite is better the last few days. - Time Spent With Patient Total time spent is greater than 50% in coordination of care (as documented) at patient's floor/unit and/or counseling patient: 25 - 35 minutes - Subjective Interval history: Patient is feeling weak and tired. Tolerating PO diet, but did not eat his breakfast. Denies dyspnea. - Constitutional Vitals: Abnormal lab results RBC 3.25 M/mcL (4.19-5.50) L 02/10/19 01:35 Hgb 8.6 g/dL (12.9-16.9) L 02/10/19 01:35 Hct 27.4 % (37.5-50.1) L 02/10/19 01:35 MCH 26.5 pg (28.0-33.3) L 02/10/19 01:35 MCHC 31.4 g/dL (31.6-35.5) L 02/10/19 01:35 RDW 19.7 % (11.5-14.5) H 02/10/19 01:35 Plt Count 121 K/mcL (140-400) L 02/10/19 01:35 PT 17.6 Seconds (9.4-12.1) H 02/10/19 08:31 Heparin Anti-Xa, Unfract 0.26 IU/mL (0.30-0.70) L 02/10/19 09:45 Chloride 113 mEq/L (98-107) H 02/10/19 01:35 Carbon Dioxide 20 mEq/L (23-29) L 02/10/19 01:35 BUN 53 mg/dL (8-23) H 02/10/19 01:35 62 (6-26) H 02/10/19 01:35 Glucose 58 mg/dL (70-105) L 02/10/19 01:35 POC Glucose 123 mg/dL (70-99) H 02/08/19 17:26 302 (280-300) H 02/10/19 01:35 Calcium 6.7 mg/dL (8.6-10.3) L 02/10/19 01:35 Venous Ioniz Calcium 1.12 mmol/L (1.15-1.35) L 02/10/19 01:50 Phosphorus 2.1 mg/dL (2.7-4.5) L 02/10/19 01:35 AST 59 Units/L (13-39) H 02/10/19 01:35 125 Units/L (34-104) H 02/10/19 01:35 5.0 g/dL (6.4-8.9) L 02/10/19 01:35 2.1 g/dL (3.5-5.7) L 02/10/19 01:35 0.7 (1.1-2.2) L 02/10/19 01:35 7.6 mg/dL (17.0-34.0) L 02/09/19 04:42 TSH 5.854 mcIU/mL (0.340-5.600) H 02/09/19 04:42 Moderate (Negative) H 02/09/19 01:44 15-30 per hpf (0-3) H 02/09/19 01:44 Exam: General: Patient is alert, oriented, no acute distress, cachectic Head: atraumatic, normocephalic, ENT: Poor dentition, dry mucous membranes. Respiratory: Decreased breath sounds, crackles throughout the left posterior lung field. Cardiovascular: Regular rate and rhythm. s1 and s2 No clicks, rubs, gallops, or murmurs. Abdomen: Scaphoid abdomen, Bowel sounds. Abdomen is soft, nondistended. no tenderness. musculoskeletal: Spontaneously moving all extremities. no edema. Skin: warm, dry, intact. Multiple ecchymosis and bruising in all extremities at different stages of healing. Neuro: Alert and oriented x4. No focal deficit Palliative Quality Palliative Quality: Screen for Code Status: Yes, Screen for Goals of Care: Yes, Screen for Pain: Yes, If Pain Regimen Started, Initiate Bowel Regimen: NA, Screen for Nausea/Vomitting: Yes Code Status: 02/08/19 17:56 Resuscitation Status: Active [RES] Routine Comment: Resuscitation Status: Full Code - Labs CBC & Chem 7: 02/10/19 01:35 02/10/19 01:35 Labs: Laboratory Results - last 24 hr 02/09/19 02/10/19 02/10/19 19:09 01:35 01:35 WBC 5.9 RBC 3.25 L Hgb 8.6 L Hct 27.4 L MCV 84.3 MCH 26.5 L MCHC 31.4 L RDW 19.7 H Plt Count 121 L MPV 9.7 PT INR Heparin Anti-Xa, Unfract 0.03 L Sodium 140 Potassium 3.6 Chloride 113 H Carbon Dioxide 20 L BUN 53 H Creatinine 0.85 Est GFR ( Amer) > 60 Est GFR (Non-Af Amer) > 60 BUN/Creatinine Ratio 62 H Glucose 58 L Calculated Osmolality 302 H Calcium 6.7 L Venous Ioniz Calcium Phosphorus 2.1 L Magnesium 2.1 Total Bilirubin 0.3 AST 59 H ALT 44 Alkaline Phosphatase 125 H Serum Total Protein 5.0 L Albumin 2.1 L Globulin 2.9 Albumin/Globulin Ratio 0.7 L 25-OH Vitamin D Total 02/10/19 02/10/19 02/10/19 01:35 01:35 01:50 WBC RBC Hgb Hct MCV MCH MCHC RDW Plt Count MPV PT INR Heparin Anti-Xa, Unfract 0.08 L Sodium Potassium Chloride Carbon Dioxide BUN Creatinine Est GFR ( Amer) Est GFR (Non-Af Amer) BUN/Creatinine Ratio Glucose Calculated Osmolality Calcium Venous Ioniz Calcium 1.12 L Phosphorus Magnesium Total Bilirubin AST ALT Alkaline Phosphatase Serum Total Protein Albumin Globulin Albumin/Globulin Ratio 25-OH Vitamin D Total 39 02/10/19 02/10/19 08:31 09:45 WBC RBC Hgb Hct MCV MCH MCHC RDW Plt Count MPV PT 17.6 H INR 1.6 Heparin Anti-Xa, Unfract 0.26 L Sodium Potassium Chloride Carbon Dioxide BUN Creatinine Est GFR ( Amer) Est GFR (Non-Af Amer) BUN/Creatinine Ratio Glucose Calculated Osmolality Calcium Venous Ioniz Calcium Phosphorus Magnesium Total Bilirubin AST ALT Alkaline Phosphatase Serum Total Protein Albumin Globulin Albumin/Globulin Ratio 25-OH Vitamin D Total - ABG Interpretation ABG results: PT/INR, D-dimer PT 17.6 Seconds (9.4-12.1) H 02/10/19 08:31 Consult Discharge Plan - Plan Referrals: Jerrod Valentino MD [Primary Care Provider] -
[2019-02-10 18:39] LABS: % Iron Saturation 21 % (20-55); Iron 30 mcg/dL (65-175); Transferrin 101 mg/dL (203-362)
[2019-02-10] MEDS: Acetylcysteine 10% 2 ML INHSOL IH SCH ×2 (18:39→19:50)
[2019-02-10 18:57] LABS: Ferritin 791 ng/mL (20-250)
[2019-02-10 19:42] LABS: Folate 12.1 ng/mL (3.0-16.0)
[2019-02-10 19:43] LABS: Vitamin B12 > 1500 pg/mL (250-1100)
[2019-02-10] MEDS: Ipratropium/Albuterol Neb 3 ML IH PRN (19:49)
[2019-02-11] MEDS ORDERED: Piperacillin/Tazobactam 3.375 GM VIAL ONE (01:48)
[2019-02-11] MEDS ORDERED: 0.9 % Sodium Chloride Mini Bag 100 ML ONE (01:54)
[2019-02-11] MEDS: Piperacillin/Tazobactam 3.375 GM in 0.9 % Sodium Chloride Mini Bag 100 ML IVPB SCH ×3 (02:31→16:14)
[2019-02-11 04:04] LABS: Hematocrit 25.4 % (37.5-50.1); Hemoglobin 8.2 g/dL (12.9-16.9); Mean Corpuscular HGB Conc 32.3 g/dL (31.6-35.5); Mean Corpuscular Hemoglobin 27.1 pg (28.0-33.3); Mean Corpuscular Volume 83.8 fL (83.0-100.0); Mean Platelet Volume 10.6 fL (9.4-12.4); Platelet Count 120 K/mcL (140-400); Red Blood Count 3.03 M/mcL (4.19-5.50); Red Cell Distribution Width 19.8 % (11.5-14.5)
[2019-02-11 04:19] LABS: BUN/Creatinine Ratio 52 (6-26); Blood Urea Nitrogen 40 mg/dL (8-23); Calcium 6.8 mg/dL (8.6-10.3); Carbon Dioxide 21 mEq/L (23-29); Chloride 111 mEq/L (98-107); Glucose 149 mg/dL (70-105); Osmolality,Calculated 301 (280-300); Phosphorous 1.7 mg/dL (2.7-4.5); Potassium 3.2 mEq/L (3.5-5.1); Sodium 139 mEq/L (136-145); eGFR For Non-African Americans > 60 (> 60)
[2019-02-11] MEDS: Sucralfate 1 GM TABLET PO SCH ×4 (06:30→21:13)
[2019-02-11] MEDS ORDERED: Potassium Chloride Elixir 20 MEQ/15 ML UDC PO ONE (07:24)
[2019-02-11] MEDS ORDERED: Calcium Gluconate 2,000 MG in 0.9 % Sodium Chloride 100 ML IVPB ONE (07:25)
[2019-02-11] MEDS: Ipratropium/Albuterol Neb 3 ML IH PRN ×3 (07:26→22:25)
[2019-02-11] MEDS: Acetylcysteine 10% 2 ML INHSOL IH SCH ×3 (07:28→22:25)
[2019-02-11] MEDS ORDERED: Vancomycin 500 MG in 0.9 % Sodium Chloride 250 ML IVPB SCH (08:00)
[2019-02-11] MEDS ORDERED: Metoprolol XL (24 HR) Succ 25 MG TAB.ER.24H PO SCH (09:00)
[2019-02-11] MEDS: BuPROPion XL (24 HR) 150 MG TABLET PO SCH (09:12)
[2019-02-11] MEDS: Folic Acid 1 MG TABLET PO SCH (09:12)
[2019-02-11] MEDS: Vancomycin 500 MG in 0.9 % Sodium Chloride Mini Bag 100 ML IVPB SCH ×2 (11:00→21:14)
--- NOTE | 2019-02-11 11:18 | Pulmonology Consult Note ---
Date of Encounter: 02/11/19 Time of Encounter: 10:00 Assessment and Plan (1) Acute and chronic respiratory failure with hypoxia Current Visit: No Status: Acute Patient has acute on chronic respiratory failure with hypoxia secondary to possible tumor progression of his lung cancer has a complicated by pneumonia and COPD exacerbation we will start him on steroids to continue the broad-spectrum antibiotics will keep him nothing by mouth after midnight for bronchoscopy with airway exam. (2) COPD exacerbation Current Visit: Yes Status: Acute Patient has most likely COPD exacerbation secondary to possible pneumonia we will start him on steroids to keep him on scheduled bronchodilators. (3) Adenocarcinoma of lung, stage 4 Current Visit: Yes Status: Acute Patient has stage IV adenocarcinoma of lung. Malignant pleural effusion patient did not tolerate Pleurx catheter since it did not help him. Qualifiers: Qualified Code(s): C34.90 - Malignant neoplasm of unspecified part of unsp ecified bronchus or lung (4) Mucus plugging of bronchi Current Visit: Yes Status: Acute Most likely mucus plugging of the left lobar airways possible endobronchial extension of the tumor will do bronchoscopy with airway exam keep him nothing by mouth after midnight. (5) DVT (deep venous thrombosis) Current Visit: Yes Status: Acute To continue heparin for now we will hold off heparin at 5 AM in the morning in anticipation of the procedure. I personally communicated with the RN is taking care of the patient in holding heparin drip. Qualifiers: Qualified Code(s): I82.409 - Acute embolism and thrombosis of unspecified deep veins of unspecified lower extremity History of Present Illness Consult date: 02/11/19 Requesting physician: Lola Pink Reason for consult: pneumonia, abnormal CXR/CT Chief complaint: not able to cough much secretions History of present illness: 68-year-old male with past medical history of coronary artery disease, COPD, recently diagnosed stage IV left-sided adenocarcinoma with the malignant pleural effusion had a Pleurx catheter recently was removed as patient is not tolerant was not tolerating that. Patient comes with altered mental status found to have possible pneumonia pulmonary was consulted for bronchoscopy for airway examination as he has a filling defect in the left lobar airways patient has minimal loculated effusion with IR guided thoracentesis was attempted not much pleural fluid was there. Patient says is trying to cough that lot of secretion in his left side lung. Patient denies much shortness of breath denies any chest pain chest tightness denies any palpitation or syncope patient if he gets his treatment wants to try further chemotherapy. Past Med Surg Social Fam HX - Past Medical History Medical history: arthritis, cancer, COPD, hyperlipidemia, hypertension, myocardial infarction, other Additional medical history: hepatitis, IBS, blood thinners Psychiatric history: no psych history - Past Surgical History Additional surgical history: 1 cardiac stent, arthroscopy of the knee - Social History Smoking Status: Current every day smoker Smokeless Tobacco Status: No Alcohol use: none Drug use: none - Family History Mother Living Status: Hx Family Cardiac Disorders: Yes (HTN, CHF) Father Living Status: Brother Hx Family Cancer: Yes (Brain, colon) Hx Family Endocrine Disorder: Yes (DM) Sister Hx Family Cancer: Yes (Breast) Daughter Hx Family Cardiac Disorders: Yes (HTN, murmur) Medications and Allergies Atorvastatin Calcium [Lipitor] 80 mg PO HS 11/13/18 [History] Bupropion HCl [Wellbutrin Xl] 300 mg PO DAILY 02/10/19 [History] Buspirone HCl [Buspar] 15 mg PO BID 02/10/19 [History] Folic Acid 1 mg PO DAILY 02/10/19 [History] Ipratropium/Albuterol Neb [Duoneb] 3 ml IH Q8HR PRN 02/10/19 [History] Levothyroxine [Synthroid] 50 mcg PO QAM 02/10/19 [History] Metoprolol XL (24 HR) Succ [Toprol XL] 25 mg PO DAILY 02/10/19 [History] Oxycodone HCl/Acetaminophen [Percocet 5-325 mg Tablet] 1 tab PO Q4H PRN 02/10/19 [History] Sertraline [Zoloft] 50 mg PO DAILY 02/10/19 [History] Warfarin [Coumadin] 1 mg PO DAILY 02/10/19 [History] Allergy/AdvReac Type Severity Reaction Status Date / Time No Known Allergies Allergy Verified 01/29/19 13:07 All Systems: The remainder of the systems were reviewed and are negative Physical Examination Vital Signs: Vital Signs, Last 4 Hours Temp Pulse Resp BP Pulse Ox 02/11/19 10:54 98.4 F 62 16 114/71 100 02/11/19 07:29 98.9 F 69 16 131/73 98 02/11/19 07:26 18 97 General appearance: no acute distress Effort: mildly labored Auscultation: bilateral: diminished breath sounds (More on the left side), rales (Left side) Cardiovascular: regular rate and rhythm Gastrointestinal: normoactive bowel sounds Extremities: no cyanosis normal mental status, non-focal exam Results - Laboratory Findings CBC and BMP: 02/11/19 02:40 02/11/19 02:40 PT/INR, D-dimer PT 17.6 Seconds (9.4-12.1) H 02/10/19 08:31 Abnormal lab findings: Abnormal lab results RBC 3.03 M/mcL (4.19-5.50) L 02/11/19 02:40 Hgb 8.2 g/dL (12.9-16.9) L 02/11/19 02:40 Hct 25.4 % (37.5-50.1) L 02/11/19 02:40 MCH 27.1 pg (28.0-33.3) L 02/11/19 02:40 MCHC 31.4 g/dL (31.6-35.5) L 02/10/19 01:35 RDW 19.8 % (11.5-14.5) H 02/11/19 02:40 Plt Count 120 K/mcL (140-400) L 02/11/19 02:40 PT 17.6 Seconds (9.4-12.1) H 02/10/19 08:31 Heparin Anti-Xa, Unfract 1.40 IU/mL (0.30-0.70) H* 02/11/19 00:30 Potassium 3.2 mEq/L (3.5-5.1) L 02/11/19 02:40 Chloride 111 mEq/L (98-107) H 02/11/19 02:40 Carbon Dioxide 21 mEq/L (23-29) L 02/11/19 02:40 BUN 40 mg/dL (8-23) H 02/11/19 02:40 52 (6-26) H 02/11/19 02:40 Glucose 149 mg/dL (70-105) H 02/11/19 02:40 POC Glucose 123 mg/dL (70-99) H 02/08/19 17:26 301 (280-300) H 02/11/19 02:40 Calcium 6.8 mg/dL (8.6-10.3) L 02/11/19 02:40 Venous Ioniz Calcium 1.12 mmol/L (1.15-1.35) L 02/10/19 01:50 Phosphorus 1.7 mg/dL (2.7-4.5) L 02/11/19 02:40 Iron 30 mcg/dL (65-175) L 02/10/19 17:48 101 mg/dL (203-362) L 02/10/19 17:48 791 ng/mL (20-250) H 02/10/19 17:48 AST 59 Units/L (13-39) H 02/10/19 01:35 125 Units/L (34-104) H 02/10/19 01:35 5.0 g/dL (6.4-8.9) L 02/10/19 01:35 2.1 g/dL (3.5-5.7) L 02/10/19 01:35 0.7 (1.1-2.2) L 02/10/19 01:35 7.6 mg/dL (17.0-34.0) L 02/09/19 04:42 Vitamin B12 > 1500 pg/mL (250-1100) H 02/10/19 17:48 0.41 ng/mL (0.00-0.15) H 02/10/19 17:48 TSH 5.854 mcIU/mL (0.340-5.600) H 02/09/19 04:42 Moderate (Negative) H 02/09/19 01:44 15-30 per hpf (0-3) H 02/09/19 01:44 Positive (Negative) A 02/10/19 18:40 - Clinical Findings Intake & Output: Intake & Output 02/10/19 02/11/19 02/11/19 23:59 07:59 15:59 Intake Total 280 / 365.6 220 / 220 Output Total 175 / 175 Balance 280 / -134.4 -175 / 45 220 / 45 Consult Discharge Plan - Plan Referrals: Jerrod Valentino MD [Primary Care Provider] -
[2019-02-11] MEDS: Heparin 25,000 UNIT/250 ML D5W 25,000 UNIT/250 ML IV.SOLN IVC SCH (11:50)
--- NOTE | 2019-02-11 13:19 | Internal Med Progress Note ---
Hospitalist Progress Note - Encounter Date of Encounter: 02/11/19 Time of Encounter: 08:00 - Subjective Interval History: Patient was seen and examined at bedside. Has no complaints, tolerating by mouth diet, no overnight events. All questions answered. Reports that his breathing is somewhat improved since admission, we discussed that interventional radiologist was unable to perform thoracocentesis as he does not have much pleural fluid. Currently denies chest pain or palpitations. Pain is controlled - Exam Vitals: Temp Pulse Resp BP Pulse Ox 98.4 F 62 16 114/71 100 02/11/19 10:54 02/11/19 10:54 02/11/19 10:54 02/11/19 10:54 02/11/19 10:54 Exam: General: Patient is alert, oriented, no acute distress, cachectic Head: atraumatic, normocephalic, Eye: normal appearance, PERRL, no scleral icterus, no conjunctival injection ENT: Poor dentition, dry mucous membranes. Neck: normal inspection, trachea midline, full ROM, Chest: normal inspection, symmetric chest rise Respiratory: Decreased breath sounds left greater than right, crackles througho ut the left posterior lung field. A list to percussion of the left lower lung field Cardiovascular: Regular rate and rhythm. s1 and s2 No clicks, rubs, gallops, or murmors. Abdomen: Scaphoid abdomen, Bowel sounds present normoactive x-4 quadrants. Abdomen is soft, nondistended. no Epigastric tenderness. No guarding or rebound. No organomegaly noted, scaphoid musculoskeletal: Spontaneously moving all extremities. no edema, left lower extremity from feet up to mid thigh has increased swelling as compared to the right lower extremity, nontender to palpation, no color change Skin: warm, dry, intact. Multiple ecchymosis and bruising in all extremities at different stages of healing. Neuro: Alert and oriented x4. No focal deficit Psych: Patient's affect is normal . - Assessment and Plan (1) Malignant pleural effusion Current Visit: No Status: Acute Assessment and Plan: Malignant left sided pleural effusion History of recurrent pleural effusion secondary to malignancy. As per oncology note on 01/29/19- "Recurrent left pleural effusion. He had a chest tube the hospital October 2018 which was converted to a Pleurx catheter. According to him the Pleurx drainage has reduced and subsequently Pleurx catheter was removed at patient's request" Continue with oxygen via nasal cannula, currently not in respiratory distress IR was consulted for thoracocentesis however it was not performed as the pleural fluid is minimal on ultrasound. (2) Acute respiratory failure with hypoxia Current Visit: No Status: Acute Assessment and Plan: Secondary to malignant pleural effusion and mucous plugging Was started on NAC inhalation expiratory positive pressure Chest PT continue Duo-nebs pulmonology consulted will follow recommendations Continue with oxygen via nasal cannula and keep sats above 92%. (3) Cavitary lesion of lung Current Visit: Yes Status: Acute Assessment and Plan: procalcitonin 0.41 starte don vancomycin adn zosyn pulm consulted will follow urine antigens ordered sputum cx if able MRSA swab positive Discussed case with pulmonology who recommended repeat CT chest (4) Multiple tracheobronchial mucus plugs Current Visit: Yes Status: Acute Assessment and Plan: management as above (5) DVT (deep venous thrombosis) Current Visit: Yes Status: Suspected Assessment and Plan: Pt. is Positive for DVT in the Left CVF,SFV,Popliteal,PTV and Peroneal Veins. Continue with heparin drip as CT head was negative for any acute abnormalities. Recent CT angiogram of the chest was negative for pulmonary embolism. if no frther procedures planned consider bridging him with coumadin (6) Non-small cell lung cancer (NSCLC) Current Visit: No Status: Chronic Assessment and Plan: Stage IV adenocarcinoma of the lung PET scan at [facility] 10/21/2018 showed large 4 cm cavitary lesion right upper lobe and left pleural effusion with multiple foci of increased FDG. Hypermetabolic [place] in the left upper load is indeterminate. Hypermetabolic left internal mammary and subpectoral lymph nodes. MRI brain on 11/12/[address] scan chest abdomen pelvis on 11/11/2018 showed thick walled cavitary nodule posterior right upper lobe 2.8 x 1.8 cm. Large left pleural effusion receiving Pembrolizumab 200 mg IV every 3 weeks cycle 2018 Recurrent left pleural effusion had chest tube October 2018 which is converted to Pleurx catheter which was removed at patient's request Follows with oncology Success last appointment was 01/29/2019 brain MRI on 10/2090- IMPRESSION: No intracranial metastasis detected. oncology consulted will follow recs (7) Severe protein-calorie malnutrition Current Visit: No Status: Acute Assessment and Plan: Patient BMI is 12 he is not unit several days face he has been having diarrhea had a 40 pound weight loss over the sixth months. prealbumin 7.6 Nutritional services consulted Continue with gentle hydration Watch electrolytes as he is high risk for refeeding syndrome. (8) CAD (coronary artery disease) Current Visit: No Status: Chronic Assessment and Plan: History of CAD with stent placements Continue with home medications if not contraindicated (9) COPD (chronic obstructive pulmonary disease) Current Visit: No Status: Chronic Assessment and Plan: Not an exacerbation Patient continues to smoke encouraged patient to stop smoking nicotine patch Continue with oxygen and bronchodilators as needed (10) Dehydration Current Visit: Yes Status: Acute Assessment and Plan: Continue with gentle hydration Avoid fluid overload. (11) Generalized pain Current Visit: No Status: Acute Assessment and Plan: Continue with pain management medications Palliative on board Hold pain medications for respiratory rate less than 12 and saturations less than 92%. (12) Hypothyroidism Current Visit: No Status: Acute Assessment and Plan: TSH is mildly elevated [place] secondary to acute illness To have thyroid functions test repeated in 4 weeks by PCP to consider starting Synthroid as per their discretion. (13) Goals of care, counseling/discussion Current Visit: No Status: Acute Assessment and Plan: Discussed CODE STATUS with patient at length and he wishes to be full code Palliative was consulted for goals of care and pain management Prognosis is poor (14) Tobacco dependence Current Visit: No Status: Chronic Assessment and Plan: Patient states that he used to be a pack-a-day smoker for 40 years now healing smokes 3-4 cigarettes a day encouraged patient to stop smoking offer nicotine patch which he declined (15) Hypophosphatemia Current Visit: Yes Status: Acute Assessment and Plan: Was replaced continue to follow and replace as needed (16) Hypocalcemia Current Visit: Yes Status: Acute Assessment and Plan: Started on calcium supplementation Vitamin D is within normal limit 39 (17) Lung nodule Current Visit: Yes Status: Acute Assessment and Plan: New 3 mm right lower lobe pulmonary nodule, for which continued attention on follow-up is recommended. (18) Hypokalemia Current Visit: Yes Status: Acute Assessment and Plan: replaced follow in AM (19) DVT prophylaxis Current Visit: No Status: Acute Assessment and Plan: On heparin drip - Time Spent with Patient Total time spent is greater than 50% in coordination of care (as documented) at patient's floor/unit and/or counseling patient: Internal Medicine: Result - Labs CBC & Chem 7: 02/11/19 02:40 02/11/19 02:40 Labs: Short CBC 02/11/19 Range/Units 02:40 WBC 5.6 (4.3-11.1) K/mcL Hgb 8.2 L (12.9-16.9) g/dL Hct 25.4 L (37.5-50.1) % Plt Count 120 L (140-400) K/mcL BMP 02/11/19 02:40 Sodium 139 Potassium 3.2 L Chloride 111 H Carbon Dioxide 21 L BUN 40 H Creatinine 0.77 Glucose 149 H Calcium 6.8 L - ABG Interpretation ABG results: PT/INR, D-dimer PT 17.6 Seconds (9.4-12.1) H 02/10/19 08:31 - Impressions Impressions Chest CT 02/11/19 07:39 IMPRESSION: Filling defects within left mainstem bronchus, extending to left upper and lower lobe bronchi, suggestive of aspirated material or extensive mucoid impaction. Near complete collapse of the left lower lobe. Progressive consolidation of the left upper lobe which can be due to infection or lymphangitic carcinomatosis. Small to moderate left pleural effusion. Right middle lobe pulmonary nodule is of similar size to prior examination though with decreasing conspicuity of central cavitation as compared to prior. New 3 mm right lower lobe pulmonary nodule, for which continued attention on follow-up is recommended. Diffuse anasarca of subcutaneous, mediastinal, and upper abdominal fat. D/ / Ulisses Reagan MD / Ulisses Reagan MD Interpreting Provider: Ulisses Reagan MD Consult Discharge Plan - Plan Referrals: Jerrod Valentino MD [Primary Care Provider] - (5) DVT (deep venous thrombosis) Qualifiers: DVT location: lower extremity Affected thrombotic vein of extremity: popliteal Chronicity: acute Laterality: left Qualified Code(s): I82.432 - Acute embolism and thrombosis of left popliteal vein (6) Non-small cell lung cancer (NSCLC) Qualifiers: Laterality: left Qualified Code(s): C34.92 - Malignant neoplasm of unspecified part of left bronchus or lung (8) CAD (coronary artery disease) Qualifiers: Coronary Disease-Associated Artery/Lesion type: unspecified vessel or lesion type [place] vs. transplanted heart: [place] heart Associated angina: without angina Qualified Code(s): I25.10 - Atherosclerotic heart disease of [place] coronary artery without angina pectoris (9) COPD (chronic obstructive pulmonary disease) Qualifiers: COPD type: unspecified COPD Qualified Code(s): J44.9 - Chronic obstructive pulmonary disease, unspecified (12) Hypothyroidism Qualifiers: Hypothyroidism type: unspecified Qualified Code(s): E03.9 - Hypothyroidism, unspecified
--- NOTE | 2019-02-11 14:19 | Oncology Inp Progress Note ---
<Marla Coffey L - Last Filed: 02/11/19 17:00> Date of Encounter: 02/11/19 Time of Encounter: 11:30 (1) Adenocarcinoma of lung, stage 4 Current Visit: Yes Status: Acute Assessment and plan: Stage IV adenocarcinoma lung Patient was followed for lung nodules for long time. On 12/14/2017 left upper lobe 1.1 cm nodule SUV 3.6 has grown in size since May 2016. Left upper lobe 6 mm nodule and a new right middle lobe 1.4 cm cavitary nodule SUV 7.7 since May 2016. Focus of hypermetabolic some GE junction SUV 5.4 More recent PET scan at [facility] 10/21/2018 showed large about 4cm cavitary lesion right upper lobe and left pleural effusion with multiple foci of increased FDG. Hypermetabolic opacity in the left upper lobe is indeterminate. Hypermetabolic left internal mammary and subpectoral lymph nodes. Metastatic lung adenocarcinoma with positive left pleural effusion for K-michael and ST-T 11 mutation. PD L1 positive. 40 pound weight loss. MRI brain on 11/12/[address] scan chest abdomen and pelvis on 11/11/2018 showed thick walled cavitary nodule posterior right upper lobe 2.8 x 1.8 cm. Large left pleural effusion. Also brain MRI during this admission on October 2018 negative for metastasis Pathology from the left pleural fluid analysis showed malignant cells consistent with lung adenocarcinoma on 11/12/2018. TTF-1 positive Treatment Intent: Palliative Number of cycles: Indefinite Pembrolizumab 200 mg IV day 1 Cycle repeated every 3 weeks Cycle 1 on 11/27/2018 Cycle 4 01/29/2019. 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 Castillo as an outpatient, should his performance status improve will plan to continue treatment, should he continue to decline transition to hospice would be appropriate measure at any time. We will otherwise plan to sign off Qualifiers: Qualified Code(s): C34.90 - Malignant neoplasm of unspecified part of unspecified bronchus or lung (2) DVT (deep venous thrombosis) Current Visit: Yes Status: Acute Assessment and plan: Venous doppler on admission reveals acute thrombus in the left common femoral th rough tibial vein Currently on heparin gtt Plan: Recommend transition to Xarelto prior to d/c to nursing facility Qualifiers: Qualified Code(s): I82.409 - Acute embolism and thrombosis of unspecified deep veins of unspecified lower extremity Oncology: Subj Interval history: Mr. Hoover is resting in bed. NO family at bedside. He is having difficulty turning himself in bed to obtain a more comfortable position. He denies pain, nausea, vomiting, diarrhea. No s/s bleeding. Patient goes off on tangents about irrelevant information during conversations making it difficult to have realistic conversations about his overall poor prognosis. - Constitutional General appearance: thin, no febrile Exam: emaciated/cachectic with significant muscle wasting - Head Head exam: Present: atraumatic - ENT ENT exam: Present: mucous membranes moist, normal oropharynx - Respiratory Respiratory exam: Present: decreased breath sounds. Absent: respiratory distress - Cardiovascular Cardiovascular exam: Present: RRR - GI/Abdominal GI/Abdominal exam: Present: normal bowel sounds, soft. Absent: tenderness Additional comments: flat abdomen - Extremities Exam Additional comments: LLE edema - Neurological Exam Neurological exam: Present: alert, oriented X3, no focal deficits, strengths equal and symetr throughout - Psychiatric Psychiatric exam: Present: flat affect - Skin Skin exam: Present: dry, pallor, warm Oncology: Obj Data - Labs CBC & Chem 7: 02/11/19 02:40 02/11/19 02:40 Consult Discharge Plan - Plan Referrals: Jerrod Valentino MD [Primary Care Provider] - Inpatient Charges Provider: Dr. Bhavna Cates <Marcy Catesmsi - Last Filed: 02/11/19 17:22> Date of Encounter: 02/11/19 Oncology: Obj Data - Labs CBC & Chem 7: 02/11/19 02:40 02/11/19 02:40 Inpatient Charges Provider: Dr. Bhavna Cates Follow up - Inpatient: [id number] - Attending Attestation I examined this patient and my medical decision-making was reviewed with the Advanced Practice Nurse. I agree with the documented findings, disposition and treatment plan as described except to the extent set forth below. -After long discussions with the patient today and yesterday, he would like to continue treatment for his Stage IV Lung Adenocarcinoma. He reiterated the same to palliative care. -For his acute LLE DVT, he is currently on a heparin gtt. -I would recommend transition to Xarelto 20 mg PO daily at the time of discharge for therapeutic anticoagulation. He has been on the heparin gtt since his admission. If he has been on the heparin gtt for approximately ~ 5 days, he does not need the Xarelto starter pack. -We will sign off at this time, please call us with any questions.
--- NOTE | 2019-02-11 14:30 | Palliative Progress Note ---
Date of Encounter: 02/11/19 Time of Encounter: 14:00 - Assessment and plan (1) Goals of care, counseling/discussion Current Visit: No Status: Acute Assessment and plan: 40 minutes prolonged discussion with patient about goals of care. Patient continues to have unrealistic goals, he wants to be discharge home from the hospital as he dos not want to go to rehab and be "bossed around" about exercising. He is planning to go and rent an apartment on discharge and return to cancer treatment. Explained to patient that it is not an achievable goal, as patient is too weak and unstable to take care of ADLs without help, and based on his current PPS, he is not a candidate for treatment. Patient insisted that if he moves legs around, he can get up and walk. Patient was asked to demonstrate, and was able after several effort and attempts to stand up. He then was exhausted and needed help to return in bed. Patient was then more understanding of his profound weakness. He agreed to consider rehab with the goal to return home and to cancer treatment afterward. Patient again refused adamantly to involve his friend or family into the decision making process. Patient has poor insight into his clinical condition, and will need e ncouragement to make appropriate choices. Patient though hospice candidate, is not ready for hospice at this point. The best course will be discharge to rehab once stable, with follow up hospice evaluation in rehab facility for possible long-term stay. (2) Palliative care encounter Current Visit: Yes Status: Acute (3) Generalized pain Current Visit: No Status: Acute Assessment and plan: Pain is well managed with few doses of norco prn. (4) Malignant cachexia Current Visit: No Status: Acute Assessment and plan: Patient states his appetite is better the last few days. He ate 30% of his lunch today. - Time Spent With Patient Total time spent is greater than 50% in coordination of care (as documented) at patient's floor/unit and/or counseling patient: 50 minutes Greater than 35 minutes - Subjective Interval history: Patient is is feeling somewhat better today, he ate about 30% of his lunch. Complaining of R arm pain, bearable. Patient had episodes of diarrhea. - Constitutional Vitals: Abnormal lab results RBC 3.03 M/mcL (4.19-5.50) L 02/11/19 02:40 Hgb 8.2 g/dL (12.9-16.9) L 02/11/19 02:40 Hct 25.4 % (37.5-50.1) L 02/11/19 02:40 MCH 27.1 pg (28.0-33.3) L 02/11/19 02:40 MCHC 31.4 g/dL (31.6-35.5) L 02/10/19 01:35 RDW 19.8 % (11.5-14.5) H 02/11/19 02:40 Plt Count 120 K/mcL (140-400) L 02/11/19 02:40 PT 17.6 Seconds (9.4-12.1) H 02/10/19 08:31 Heparin Anti-Xa, Unfract 1.40 IU/mL (0.30-0.70) H* 02/11/19 00:30 Potassium 3.2 mEq/L (3.5-5.1) L 02/11/19 02:40 Chloride 111 mEq/L (98-107) H 02/11/19 02:40 Carbon Dioxide 21 mEq/L (23-29) L 02/11/19 02:40 BUN 40 mg/dL (8-23) H 02/11/19 02:40 52 (6-26) H 02/11/19 02:40 Glucose 149 mg/dL (70-105) H 02/11/19 02:40 POC Glucose 123 mg/dL (70-99) H 02/08/19 17:26 301 (280-300) H 02/11/19 02:40 Calcium 6.8 mg/dL (8.6-10.3) L 02/11/19 02:40 Venous Ioniz Calcium 1.12 mmol/L (1.15-1.35) L 02/10/19 01:50 Phosphorus 1.7 mg/dL (2.7-4.5) L 02/11/19 02:40 Iron 30 mcg/dL (65-175) L 02/10/19 17:48 101 mg/dL (203-362) L 02/10/19 17:48 791 ng/mL (20-250) H 02/10/19 17:48 AST 59 Units/L (13-39) H 02/10/19 01:35 125 Units/L (34-104) H 02/10/19 01:35 5.0 g/dL (6.4-8.9) L 02/10/19 01:35 2.1 g/dL (3.5-5.7) L 02/10/19 01:35 0.7 (1.1-2.2) L 02/10/19 01:35 7.6 mg/dL (17.0-34.0) L 02/09/19 04:42 Vitamin B12 > 1500 pg/mL (250-1100) H 02/10/19 17:48 0.41 ng/mL (0.00-0.15) H 02/10/19 17:48 TSH 5.854 mcIU/mL (0.340-5.600) H 02/09/19 04:42 Moderate (Negative) H 02/09/19 01:44 15-30 per hpf (0-3) H 02/09/19 01:44 Positive (Negative) A 02/10/19 18:40 Exam: General: Patient is alert, oriented, no acute distress, cachectic Head: atraumatic, normocephalic, ENT: Poor dentition, dry mucous membranes. Respiratory: Decreased breath sounds, crackles throughout the left posterior lung field. Cardiovascular: Regular rate and rhythm. s1 and s2 No clicks, rubs, gallops, or murmurs. Abdomen: Scaphoid abdomen, Bowel sounds. Abdomen is soft, nondistended. no tenderness. musculoskeletal: Spontaneously moving all extremities. no edema. Skin: warm, dry, intact. Multiple ecchymosis and bruising in all extremities at different stages of healing. Neuro: Alert and oriented x4. No focal deficit Palliative Quality Palliative Quality: Screen for Code Status: Yes, Screen for Goals of Care: Yes, Screen for Pain: Yes, If Pain Regimen Started, Initiate Bowel Regimen: NA, Screen for Nausea/Vomitting: Yes Code Status: 02/08/19 17:56 Resuscitation Status: Active [RES] Routine Comment: Resuscitation Status: Full Code - Labs CBC & Chem 7: 02/11/19 02:40 02/11/19 02:40 Labs: Laboratory Results - last 24 hr 02/10/19 02/10/19 02/10/19 17:48 17:48 17:48 WBC RBC Hgb Hct MCV MCH MCHC RDW Plt Count MPV Heparin Anti-Xa, Unfract Sodium Potassium Chloride Carbon Dioxide BUN Creatinine Est GFR ( Amer) Est GFR (Non-Af Amer) BUN/Creatinine Ratio Glucose Calculated Osmolality Calcium Phosphorus Iron 30 L % Saturation 21 Transferrin 101 L Ferritin 791 H Vitamin B12 > 1500 H Folate 12.1 Procalcitonin 0.41 H Nasal Screen MRSA (PCR) 02/10/19 02/10/19 02/11/19 18:40 21:45 00:30 WBC RBC Hgb Hct MCV MCH MCHC RDW Plt Count MPV Heparin Anti-Xa, Unfract 1.45 H* 1.40 H* Sodium Potassium Chloride Carbon Dioxide BUN Creatinine Est GFR ( Amer) Est GFR (Non-Af Amer) BUN/Creatinine Ratio Glucose Calculated Osmolality Calcium Phosphorus Iron % Saturation Transferrin Ferritin Vitamin B12 Folate Procalcitonin Nasal Screen MRSA (PCR) Positive A 02/11/19 02/11/19 02/11/19 02:40 02:40 09:25 WBC 5.6 RBC 3.03 L Hgb 8.2 L Hct 25.4 L MCV 83.8 MCH 27.1 L MCHC 32.3 RDW 19.8 H Plt Count 120 L MPV 10.6 Heparin Anti-Xa, Unfract 0.55 Sodium 139 Potassium 3.2 L Chloride 111 H Carbon Dioxide 21 L BUN 40 H Creatinine 0.77 Est GFR ( Amer) > 60 Est GFR (Non-Af Amer) > 60 BUN/Creatinine Ratio 52 H Glucose 149 H Calculated Osmolality 301 H Calcium 6.8 L Phosphorus 1.7 L Iron % Saturation Transferrin Ferritin Vitamin B12 Folate Procalcitonin Nasal Screen MRSA (PCR) - Impressions Impressions Chest CT 02/11/19 07:39 IMPRESSION: Filling defects within left mainstem bronchus, extending to left upper and lower lobe bronchi, suggestive of aspirated material or extensive mucoid impaction. Near complete collapse of the left lower lobe. Progressive consolidation of the left upper lobe which can be due to infection or lymphangitic carcinomatosis. Small to moderate left pleural effusion. Right middle lobe pulmonary nodule is of similar size to prior examination though with decreasing conspicuity of central cavitation as compared to prior. New 3 mm right lower lobe pulmonary nodule, for which continued attention on follow-up is recommended. Diffuse anasarca of subcutaneous, mediastinal, and upper abdominal fat. D/ / Ulisses Reagan MD / Ulisses Reagan MD Interpreting Provider: Ulisses Reagan MD - ABG Interpretation ABG results: PT/INR, D-dimer PT 17.6 Seconds (9.4-12.1) H 02/10/19 08:31 Palliative Scale - Palliative Performance Scale How ambulatory is this patient?: Totally bed bound What is patient's level of activity and evidence of disease?: Unable to do any work, Extensive disease How much self-care assistance does patient require?: Mainly assistance How much oral intake does the patient have?: Normal or reduced What is this patient's level of consciousness?: Full Palliative Performance Score: 30 % Consult Discharge Plan - Plan Referrals: Jerrod Valentino MD [Primary Care Provider] -
--- NOTE | 2019-02-11 18:44 | Anesthesia Evaluation PreOp ---
Date of Encounter: 02/11/19 Time of Encounter: 18:42 - Past History Planned Operation: Bronchoscopy Cardiac History: [place], HTN, Hyperlipidemia, Cardiac Stent (x1 2008) Pulmonary History: Smoker, COPD (2-3 Liters O2), Other (stage 4 lung cancer, malignant pleural effusion) TAB BUILDER History: Other (depression) Other Medical History: GERD, Other (cachexia) Anesthesia History: Past Anesthesia (l knee surgery, colonoscopy, L pleurx catheter removal) Alcohol Use: none Drug use: none Medications and Allergies Atorvastatin Calcium [Lipitor] 80 mg PO HS 11/13/18 [History] Bupropion HCl [Wellbutrin Xl] 300 mg PO DAILY 02/10/19 [History] Buspirone HCl [Buspar] 15 mg PO BID 02/10/19 [History] Folic Acid 1 mg PO DAILY 02/10/19 [History] Ipratropium/Albuterol Neb [Duoneb] 3 ml IH Q8HR PRN 02/10/19 [History] Levothyroxine [Synthroid] 50 mcg PO QAM 02/10/19 [History] Metoprolol XL (24 HR) Succ [Toprol XL] 25 mg PO DAILY 02/10/19 [History] Oxycodone HCl/Acetaminophen [Percocet 5-325 mg Tablet] 1 tab PO Q4H PRN 02/10/19 [History] Sertraline [Zoloft] 50 mg PO DAILY 02/10/19 [History] Warfarin [Coumadin] 1 mg PO DAILY 02/10/19 [History] Allergy/AdvReac Type Severity Reaction Status Date / Time No Known Allergies Allergy Verified 01/29/19 13:07 - Meds/Allergy Pre-op Review Medications Reviewed: Yes Allergies Reviewed: Yes Beta Blockers on Current Med List: Yes Anesthesia Results - Labs 02/11/19 02:40 02/11/19 02:40 - Imaging EKG: report reviewed (Sinus rhythm Left anterior fascicular block Abnormal R- wave progression, early transition) Anesthesia Exam Vital Signs/O2 Sat, Most Current Temp Pulse Resp BP Pulse Ox 98.1 F 63 16 129/81 94 02/11/19 17:07 02/11/19 17:07 02/11/19 17:07 02/11/19 17:07 02/11/19 17:07 - HEENT Pupil (Motor): Pupils equal, EOMI Mallampati: II Teeth: Edentulous Oral Opening: Greater than 3 - TAB BUILDER LOC: Oriented TAB BUILDER Motor: Normal RUE, Normal LUE, Normal RLE, Normal LLE, Normal Face TAB BUILDER Sensory: Normal: RUE, LUE, RLE, LLE, Face - Cardiac Rhythm: Regular Murmur: None JVD: No Carotid Bruit: No - Pulmonary Breath Sounds: bilateral Clear Respiratory Effort: Symmetrical Anesthesia Assess/Plan ASA Score: 4 (Lung Ca, Cachexia, Smoker, CAD, AFib, COPD, Acute on Chronic Resp Failure) Level of consciousness: Cooperative Anesthetic Plan: General Autologous Blood: Yes Monitoring Plan: Standard Monitors Recovery Plan: PACU
[2019-02-11] MEDS: predniSONE 20 MG TABLET PO SCH (21:15)
[2019-02-12] MEDS: Piperacillin/Tazobactam 3.375 GM in 0.9 % Sodium Chloride Mini Bag 100 ML IVPB SCH ×4 (00:25→23:52)
[2019-02-12 06:02] LABS: Hematocrit 25.9 % (37.5-50.1); Hemoglobin 8.4 g/dL (12.9-16.9); Immature Granulocytes % 0.5 % (0-4); Lymphocytes # 1.1 K/mcL (0.6-4.6); Lymphocytes % 18.2 %; Mean Corpuscular HGB Conc 32.4 g/dL (31.6-35.5); Mean Corpuscular Hemoglobin 27.2 pg (28.0-33.3); Mean Corpuscular Volume 83.8 fL (83.0-100.0); Mean Platelet Volume 9.7 fL (9.4-12.4); Monocytes # 0.4 K/mcL (0.0-1.3); Monocytes % 7.2 %; Neutrophils # 4.4 K/mcL (1.6-8.9); Platelet Count 140 K/mcL (140-400); Red Blood Count 3.09 M/mcL (4.19-5.50); Red Cell Distribution Width 20.4 % (11.5-14.5); Segmented Neutrophils % 74.1 %
[2019-02-12 06:27] LABS: BUN/Creatinine Ratio 42 (6-26); Blood Urea Nitrogen 30 mg/dL (8-23); Carbon Dioxide 21 mEq/L (23-29); Chloride 114 mEq/L (98-107); Glucose 40 mg/dL (70-105); Magnesium 1.8 mg/dL (1.6-2.6); Osmolality,Calculated 297 (280-300); Phosphorous 2.6 mg/dL (2.7-4.5); Potassium 3.5 mEq/L (3.5-5.1); Sodium 142 mEq/L (136-145); eGFR For Non-African Americans > 60 (> 60)
[2019-02-12] MEDS ORDERED: *HR* Dextrose 50 % in Water (Vial) 50 ML VIAL IVP ONE (06:41)
[2019-02-12] MEDS: Acetylcysteine 10% 2 ML INHSOL IH SCH (07:29)
[2019-02-12] MEDS: Ipratropium/Albuterol Neb 3 ML IH PRN (07:29)
[2019-02-12] MEDS ORDERED: *HR* FentaNYL (PF) 100 MCG/2 ML VIAL ONE (07:37)
[2019-02-12] MEDS ORDERED: *HR* Propofol 200 MG/20 ML VIAL IVP ONE (07:37)
[2019-02-12] MEDS ORDERED: *HR* Succinylcholine 200 MG/10 ML VIAL IVP ONE (07:38)
[2019-02-12] MEDS ORDERED: Lidocaine -MPF 4% 5 ML AMPUL ONE (07:38)
[2019-02-12] MEDS: Sucralfate 1 GM TABLET PO SCH ×4 (08:13→21:47)
[2019-02-12] MEDS: Folic Acid 1 MG TABLET PO SCH (08:13)
[2019-02-12] MEDS ORDERED: *HR* PHENYLEPHRINE 1,000 MCG/10 ML SYRINGE IVP ONE (08:19)
[2019-02-12] MEDS ORDERED: 0.9 % Sodium Chloride 500 ML IVC SCH (09:15)
[2019-02-12] MEDS ORDERED: *HR* Dextrose 50 % in Water (Syg) 50 ML SYRINGE IVP PRN (12:08)
[2019-02-12] MEDS ORDERED: Dextrose Gel 15 GM/37.5 ML TUBE PO PRN ×2 (12:08)
[2019-02-12] MEDS ORDERED: D5% in Water 1,000 ML IVC PRN (12:08)
--- NOTE | 2019-02-12 12:13 | Pulmonology Progress Note ---
Date of Encounter: 02/12/19 Time of Encounter: 10:00 Assessment and Plan (1) Acute and chronic respiratory failure with hypoxia Current Visit: No Status: Acute Worsening lung cancer lot of secretion in Bilateral lobar airways. COPD exacerbation we will do bronchoscopy with BAL with some bronchopulmonary toileting. Please follow the BAL cultures and adjust antibiotics (2) COPD exacerbation Current Visit: Yes Status: Acute Continue with bronchodilators and steroids on discharge patient should go home on prolonged steroid taper (3) Adenocarcinoma of lung, stage 4 Current Visit: Yes Status: Acute Patient has worsening of adenocarcinoma of lung. Oncology following. Qualifiers: Qualified Code(s): C34.90 - Malignant neoplasm of unspecified part of unspecified bronchus or lung (4) Mucus plugging of bronchi Current Visit: Yes Status: Acute We will do a bronchoscopy Examination with bronchopulmonary toileting (5) DVT (deep venous thrombosis) Current Visit: Yes Status: Acute To stop the heparin drip 4 hours before the procedure started back 4 hours after the procedure Qualifiers: Qualified Code(s): I82.409 - Acute embolism and thrombosis of unspecified deep veins of unspecified lower extremity Subjective Principal diagnosis: Acute on chronic respiratory failure Interval history: Patient has symptoms of cough with persistent sputum production not much phlegm not coming out according to patient denies any chest pain chest tightness denies any recent change in symptoms Objective PUL Vital signs: Last Vital Signs Temp 97.0 F L 02/12/19 10:41 Pulse 57 02/12/19 11:42 Resp 19 02/12/19 11:42 BP 94/59 02/12/19 11:42 Pulse Ox 96 02/12/19 11:42 Auscultation: bilateral: rales (Scattered rales ) Cardiovascular: regular rate and rhythm Gastrointestinal: normoactive bowel sounds Extremities: no cyanosis, no edema normal mental status, non-focal exam Results - Laboratory Findings CBC and BMP: 02/12/19 05:30 02/12/19 05:30 PT/INR, D-dimer PT 17.6 Seconds (9.4-12.1) H 02/10/19 08:31 Abnormal lab findings: Abnormal lab results RBC 3.09 M/mcL (4.19-5.50) L 02/12/19 05:30 Hgb 8.4 g/dL (12.9-16.9) L 02/12/19 05:30 Hct 25.9 % (37.5-50.1) L 02/12/19 05:30 MCH 27.2 pg (28.0-33.3) L 02/12/19 05:30 MCHC 31.4 g/dL (31.6-35.5) L 02/10/19 01:35 RDW 20.4 % (11.5-14.5) H 02/12/19 05:30 Plt Count 120 K/mcL (140-400) L 02/11/19 02:40 PT 17.6 Seconds (9.4-12.1) H 02/10/19 08:31 Heparin Anti-Xa, Unfract 1.24 IU/mL (0.30-0.70) H* 02/12/19 01:40 Potassium 3.2 mEq/L (3.5-5.1) L 02/11/19 02:40 Chloride 114 mEq/L (98-107) H 02/12/19 05:30 Carbon Dioxide 21 mEq/L (23-29) L 02/12/19 05:30 BUN 30 mg/dL (8-23) H 02/12/19 05:30 42 (6-26) H 02/12/19 05:30 Glucose 40 mg/dL (70-105) L* 02/12/19 05:30 POC Glucose 129 mg/dL (70-99) H 02/12/19 07:35 301 (280-300) H 02/11/19 02:40 Calcium 7.0 mg/dL (8.6-10.3) L 02/12/19 05:30 Venous Ioniz Calcium 1.12 mmol/L (1.15-1.35) L 02/10/19 01:50 Phosphorus 2.6 mg/dL (2.7-4.5) L 02/12/19 05:30 Iron 30 mcg/dL (65-175) L 02/10/19 17:48 101 mg/dL (203-362) L 02/10/19 17:48 791 ng/mL (20-250) H 02/10/19 17:48 AST 59 Units/L (13-39) H 02/10/19 01:35 125 Units/L (34-104) H 02/10/19 01:35 5.0 g/dL (6.4-8.9) L 02/10/19 01:35 2.1 g/dL (3.5-5.7) L 02/10/19 01:35 0.7 (1.1-2.2) L 02/10/19 01:35 7.6 mg/dL (17.0-34.0) L 02/09/19 04:42 Vitamin B12 > 1500 pg/mL (250-1100) H 02/10/19 17:48 0.41 ng/mL (0.00-0.15) H 02/10/19 17:48 TSH 5.854 mcIU/mL (0.340-5.600) H 02/09/19 04:42 Moderate (Negative) H 02/09/19 01:44 15-30 per hpf (0-3) H 02/09/19 01:44 Positive (Negative) A 02/10/19 18:40 - Clinical Findings Intake & Output: Intake & Output 02/11/19 02/12/19 02/12/19 23:59 07:59 15:59 Intake Total 396.9 / 901.3 159.1 / 409.1 250 / 409.1 Output Total 350 / 350 Balance 396.9 / 726.3 -190.9 / 59.1 250 / 59.1 Weight 40 kg Consult Discharge Plan - Plan Referrals: Jerrod Valentino MD [Primary Care Provider] - (ECF Placement) Rio Castillo MD [Partnered Physician] - 02/20/19 8:30 am (Please follow up as schedule....)
[2019-02-12] MEDS: D5% in 0.45% NACL 1,000 ML IVC SCH (12:17)
[2019-02-12] MEDS: predniSONE 20 MG TABLET PO SCH (12:22)
[2019-02-12] MEDS: BuPROPion XL (24 HR) 150 MG TABLET PO SCH (12:23)
--- NOTE | 2019-02-12 12:52 | Internal Med Progress Note ---
Hospitalist Progress Note - Encounter Date of Encounter: 02/12/19 Time of Encounter: 12:00 - Subjective Interval History: Hospital course reviewed. Patient with history of adenocarcinoma of the lung with left-sided pleural effusion, who was on Pleurx catheter at one point which is now removed, was admitted on 02/08 due to L LE DVT and acute on chronic h ypoxic respiratory failure secondary to left mainstem mucous plug. Initially thought to have recurrent L pleural effusion on chest imaging but did not have any significant amount of fluid on bedside US performed on 02/10. Instead, CT showed findings compatible with aspirated material or extensive mucoid impaction on L mainstem bronchus associated with near complete collapse of the L LL. Also noted to have progressive consolidation of the left upper lobe which may represent infection or lymphangitic carcinomatosis. Patient has been started on steroid and IV antibiotics and just returned from bronchoscopy today. Currently denies any chest pain, SOB, or worsening cough - Exam Vitals: Temp Pulse Resp BP Pulse Ox 97.0 F L 57 19 94/59 96 02/12/19 10:41 02/12/19 11:42 02/12/19 11:42 02/12/19 11:42 02/12/19 11:42 Exam: General: Patient is alert, oriented, no acute distress, cachectic Respiratory: Decreased breath sounds bilaterally, L>R. No significant wheezes Cardiovascular: Regular rate and rhythm. s1 and s2 heard Abdomen: Scaphoid abdomen, soft, non-tender MSK: L LE swelling Neuro: Alert and oriented x4. No focal deficit . - Assessment and Plan (1) Acute respiratory failure with hypoxia Current Visit: Yes Status: Acute Assessment and Plan: secondary to left lung collapse with extensive mucus plugging Initially thought to have malignant left-sided pleural effusion but bedside US did not show any fluid. also has progressive consolidation of the left upper lobe currently being treated for HCAP complicated by COPD exacerbation on IV Vanc/zosyn, MRSA swab +ve. Continue steroid and bronchodilators underwent bronchoscopy today which showed mucopurulent secretions in the left mainstem bronchus and in the left lower lobe. Appreciate pulm input. follow up on BAL expiratory positive pressure, Chest PT Continue with oxygen via nasal cannula and keep sats above 92%. (2) DVT (deep venous thrombosis) Current Visit: Yes Status: Acute Assessment and Plan: doppler on 5/18 showed DVT in L CFV through tibial vein on heparin gtt for the procedure today will transition to Xarelto tomorrow as per heme/onc rec. Discussed with pharmacist, will run aponte-check (3) Non-small cell lung cancer (NSCLC) Current Visit: Yes Status: Chronic Assessment and Plan: Stage IV adenocarcinoma, was on palliative chemotherapy was also on PleurX catheter for malignant L pleural effusion, now removed poor functional status but pt is determined to continue treatment will likely be discharged to ECF following outpatient Oncology appt with Dr. Castillo. (4) Multiple tracheobronchial mucus plugs Current Visit: Yes Status: Acute Assessment and Plan: bronchoscopy result as above (5) COPD (chronic obstructive pulmonary disease) Current Visit: No Status: Chronic Assessment and Plan: continue steroids, bronchodilators, and abx as above (6) CAD (coronary artery disease) Current Visit: No Status: Chronic Assessment and Plan: resume home meds bb on hold in view of borderline BP (7) Goals of care, counseling/discussion Current Visit: No Status: Acute Assessment and Plan: appreciate palliative input, complicated by poor insight to his disease process Patient is a hospice candidate but is not ready to transition at this point (8) Severe protein-calorie malnutrition Current Visit: No Status: Chronic Assessment and Plan: Follow with nutrition (9) Hypothyroidism Current Visit: No Status: Chronic Assessment and Plan: Continue levothyroxine (10) Tobacco dependence Current Visit: No Status: Chronic Assessment and Plan: Declines nicotine patch (11) DVT prophylaxis Current Visit: No Status: Acute Assessment and Plan: hep gtt plan to transition to PO Xarelto tomorrow - Time Spent with Patient Total time spent is greater than 50% in coordination of care (as documented) at patient's floor/unit and/or counseling patient: Greater than 35 minutes Plan of Care Discussed with: patient (discussed with pulmonary) Internal Medicine: Result - Labs CBC & Chem 7: 02/12/19 05:30 02/12/19 05:30 Labs: Short CBC 02/12/19 Range/Units 05:30 WBC 6.0 (4.3-11.1) K/mcL Hgb 8.4 L (12.9-16.9) g/dL Hct 25.9 L (37.5-50.1) % Plt Count 140 (140-400) K/mcL Neutrophils # 4.4 (1.6-8.9) K/mcL BMP 02/12/19 05:30 Sodium 142 Potassium 3.5 Chloride 114 H Carbon Dioxide 21 L BUN 30 H Creatinine 0.71 Glucose 40 L* Calcium 7.0 L - ABG Interpretation ABG results: PT/INR, D-dimer PT 17.6 Seconds (9.4-12.1) H 02/10/19 08:31 Consult Discharge Plan - Plan Referrals: Jerrod Valentino MD [Primary Care Provider] - (2) DVT (deep venous thrombosis) Qualifiers: DVT location: lower extremity Affected thrombotic vein of extremity: popliteal Chronicity: acute Laterality: left Qualified Code(s): I82.432 - Acute embolism and thrombosis of left popliteal vein (3) Non-small cell lung cancer (NSCLC) Qualifiers: Laterality: left Qualified Code(s): C34.92 - Malignant neoplasm of unspecifi ed part of left bronchus or lung (5) COPD (chronic obstructive pulmonary disease) Qualifiers: COPD type: COPD with acute exacerbation Qualified Code(s): J44.1 - Chronic obstructive pulmonary disease with (acute) exacerbation (6) CAD (coronary artery disease) Qualifiers: Coronary Disease-Associated Artery/Lesion type: unspecified vessel or lesion type [place] vs. transplanted heart: [place] heart Associated angina: without angina Qualified Code(s): I25.10 - Atherosclerotic heart disease of [place] coronary artery without angina pectoris (9) Hypothyroidism Qualifiers: Hypothyroidism type: unspecified Qualified Code(s): E03.9 - Hypothyroidism, unspecified
--- NOTE | 2019-02-12 13:27 | Anesthesia Evaluation Post Op ---
Date of Encounter: 02/12/19 Time of Encounter: 13:26 - Vital Signs Vital Signs: Vital Signs/O2 Sat/Glucose, Most Recent Temp Pulse Resp BP Pulse Ox 97.0 F L 57 19 94/59 96 02/12/19 10:41 02/12/19 11:42 02/12/19 11:42 02/12/19 11:42 02/12/19 11:42 Blood Glucose* 66 - Lungs Lungs: Clear Ascult./Percussion - Airway Airway: Non-obstructed - Cardiovascular Regular Rate - Mental Status Mental Status: Alert & Oriented, Answers Appropriately - Pain Pain Scale: 0 - Nausea Vomiting Nausea Vomiting: Not Present - Hydration Hydration: NPO - Discharge PostOp Status: Transfer Patient to floor
[2019-02-12 15:56] LABS: Appearance of Body Fluid Hazy (Clear); Volume of Body Fluid 17 mL
--- NOTE | 2019-02-12 16:21 | Palliative Progress Note ---
Date of Encounter: 02/12/19 Time of Encounter: 15:30 - Assessment and plan (1) Goals of care, counseling/discussion Current Visit: Yes Status: Acute Assessment and plan: Patient remain persistent with desires to go to rehab despite overall poor prognosis. Patient states he feels a little better after Bronchoscopy. Patient up in chair and preforming to the best of his abilities in PT. Patient to DC to rehab and will likely transition to hospice care in the future. Patient is just not ready to transition. (2) Anxiety Current Visit: No Status: Acute Assessment and plan: Patient with metastatic lung cancer. S/P Bronch and reports breathing better. PRN ativan. (3) Generalized pain Current Visit: No Status: Acute (4) Palliative care encounter Current Visit: No Status: Acute Assessment and plan: Denies pain at present. PRN pain meds. - Time Spent With Patient Total time spent is greater than 50% in coordination of care (as documented) at patient's floor/unit and/or counseling patient: less than 15 minutes - Subjective Interval history: Patient s/p bronchoscopy for removal of mucopurulent secretions. Patient sitting up chair eating lunch. Verbalizes desires for rehab. - Constitutional Vitals: Abnormal lab results RBC 3.09 M/mcL (4.19-5.50) L 02/12/19 05:30 Hgb 8.4 g/dL (12.9-16.9) L 02/12/19 05:30 Hct 25.9 % (37.5-50.1) L 02/12/19 05:30 MCH 27.2 pg (28.0-33.3) L 02/12/19 05:30 MCHC 31.4 g/dL (31.6-35.5) L 02/10/19 01:35 RDW 20.4 % (11.5-14.5) H 02/12/19 05:30 Plt Count 120 K/mcL (140-400) L 02/11/19 02:40 PT 17.6 Seconds (9.4-12.1) H 02/10/19 08:31 Heparin Anti-Xa, Unfract 1.24 IU/mL (0.30-0.70) H* 02/12/19 01:40 Potassium 3.2 mEq/L (3.5-5.1) L 02/11/19 02:40 Chloride 114 mEq/L (98-107) H 02/12/19 05:30 Carbon Dioxide 21 mEq/L (23-29) L 02/12/19 05:30 BUN 30 mg/dL (8-23) H 02/12/19 05:30 42 (6-26) H 02/12/19 05:30 Glucose 40 mg/dL (70-105) L* 02/12/19 05:30 POC Glucose 129 mg/dL (70-99) H 02/12/19 07:35 301 (280-300) H 02/11/19 02:40 Calcium 7.0 mg/dL (8.6-10.3) L 02/12/19 05:30 Venous Ioniz Calcium 1.12 mmol/L (1.15-1.35) L 02/10/19 01:50 Phosphorus 2.6 mg/dL (2.7-4.5) L 02/12/19 05:30 Iron 30 mcg/dL (65-175) L 02/10/19 17:48 101 mg/dL (203-362) L 02/10/19 17:48 791 ng/mL (20-250) H 02/10/19 17:48 AST 59 Units/L (13-39) H 02/10/19 01:35 125 Units/L (34-104) H 02/10/19 01:35 5.0 g/dL (6.4-8.9) L 02/10/19 01:35 2.1 g/dL (3.5-5.7) L 02/10/19 01:35 0.7 (1.1-2.2) L 02/10/19 01:35 7.6 mg/dL (17.0-34.0) L 02/09/19 04:42 Vitamin B12 > 1500 pg/mL (250-1100) H 02/10/19 17:48 0.41 ng/mL (0.00-0.15) H 02/10/19 17:48 TSH 5.854 mcIU/mL (0.340-5.600) H 02/09/19 04:42 Moderate (Negative) H 02/09/19 01:44 15-30 per hpf (0-3) H 02/09/19 01:44 Fluid Appearance Hazy (Clear) A 02/12/19 Unknown Positive (Negative) A 02/10/19 18:40 - Head Head exam: Present: atraumatic, normal inspection, normocephalic - Eye Eye exam: Present: PERRL Pupils: Present: PERRL - ENT ENT exam: Present: mucous membranes moist - Respiratory Respiratory exam: Present: decreased breath sounds, rhonchi - Expanded Respiratory Exam Location: decreased breath sounds: Left, Right, Lower, rhonchi: Left, Right, Upper - Cardiovascular Cardiovascular exam: Present: RRR, +S1, +S2, tachycardia - GI/Abdominal GI/Abdominal exam: Present: normal bowel sounds, soft - Extremities Exam Extremities exam: Present: full ROM Additional comments: general weakness - Neurological Exam Neurological exam: Present: alert, oriented X3 - Psychiatric Psychiatric exam: Present: normal affect - Skin Skin exam: Present: pallor, warm Palliative Quality Palliative Quality: Screen for Code Status: Yes, Screen for Goals of Care: Yes, Screen for Pain: Yes, If Pain Regimen Started, Initiate Bowel Regimen: NA, Screen for Nausea/Vomitting: Yes Code Status: 02/08/19 17:56 Resuscitation Status: Active [RES] Routine Comment: Resuscitation Status: Full Code - Labs CBC & Chem 7: 02/12/19 05:30 02/12/19 05:30 Labs: Laboratory Results - last 24 hr 02/11/19 02/12/19 02/12/19 16:15 01:40 05:30 WBC 6.0 RBC 3.09 L Hgb 8.4 L Hct 25.9 L MCV 83.8 MCH 27.2 L MCHC 32.4 RDW 20.4 H Plt Count 140 MPV 9.7 Immature Gran % 0.5 Seg Neutrophils % 74.1 Lymphocytes % 18.2 Monocytes % 7.2 Eosinophils % 0.0 Basophils % 0.0 Neutrophils # 4.4 Lymphocytes # 1.1 Monocytes # 0.4 Eosinophils # 0.0 Basophils # 0.0 Heparin Anti-Xa, Unfract 1.22 H* 1.24 H* Sodium Potassium Chloride Carbon Dioxide BUN Creatinine Est GFR ( Amer) Est GFR (Non-Af Amer) BUN/Creatinine Ratio Glucose POC Glucose Calculated Osmolality Calcium Phosphorus Magnesium Fluid Source Fluid Volume Fluid Appearance Fluid RBC Fld Tot Nucleated Cell Fluid Seg Neutrophil % Fluid Lymphocytes % Fluid Monocytes % 02/12/19 02/12/19 02/12/19 05:30 07:35 14:10 WBC RBC Hgb Hct MCV MCH MCHC RDW Plt Count MPV Immature Gran % Seg Neutrophils % Lymphocytes % Monocytes % Eosinophils % Basophils % Neutrophils # Lymphocytes # Monocytes # Eosinophils # Basophils # Heparin Anti-Xa, Unfract 0.44 Sodium 142 Potassium 3.5 Chloride 114 H Carbon Dioxide 21 L BUN 30 H Creatinine 0.71 Est GFR ( Amer) > 60 Est GFR (Non-Af Amer) > 60 BUN/Creatinine Ratio 42 H Glucose 40 L* POC Glucose 129 H Calculated Osmolality 297 Calcium 7.0 L Phosphorus 2.6 L Magnesium 1.8 Fluid Source Fluid Volume Fluid Appearance Fluid RBC Fld Tot Nucleated Cell Fluid Seg Neutrophil % Fluid Lymphocytes % Fluid Monocytes % 02/12/19 Unknown WBC RBC Hgb Hct MCV MCH MCHC RDW Plt Count MPV Immature Gran % Seg Neutrophils % Lymphocytes % Monocytes % Eosinophils % Basophils % Neutrophils # Lymphocytes # Monocytes # Eosinophils # Basophils # Heparin Anti-Xa, Unfract Sodium Potassium Chloride Carbon Dioxide BUN Creatinine Est GFR ( Amer) Est GFR (Non-Af Amer) BUN/Creatinine Ratio Glucose POC Glucose Calculated Osmolality Calcium Phosphorus Magnesium Fluid Source rll bal Fluid Volume 17 Fluid Appearance Hazy A Fluid RBC Fld Tot Nucleated Cell Fluid Seg Neutrophil % 78.0 Fluid Lymphocytes % 18.0 Fluid Monocytes % 4.0 - ABG Interpretation ABG results: PT/INR, D-dimer PT 17.6 Seconds (9.4-12.1) H 02/10/19 08:31 Palliative Scale - Palliative Performance Scale How ambulatory is this patient?: Totally bed bound What is patient's level of activity and evidence of disease?: Unable to do any work, Extensive disease How much self-care assistance does patient require?: Mainly assistance How much oral intake does the patient have?: Normal or reduced What is this patient's level of consciousness?: Full Palliative Performance Score: 30 % Consult Discharge Plan - Plan Referrals: Jerrod Valentino MD [Primary Care Provider] -
[2019-02-12] MEDS: Ipratropium/Albuterol Neb 3 ML IH SCH ×3 (16:30→20:28)
[2019-02-12] MEDS ORDERED: Vancomycin 500 MG in 0.9 % Sodium Chloride Mini Bag 100 ML IVPB SCH (20:00)
[2019-02-13] MEDS: Ipratropium/Albuterol Neb 3 ML IH SCH ×6 (00:14→20:07)
[2019-02-13] MEDS: D5% in 0.45% NACL 1,000 ML IVC SCH (03:11)
[2019-02-13 05:24] LABS: Hematocrit 27.2 % (37.5-50.1); Hemoglobin 8.4 g/dL (12.9-16.9); Immature Granulocytes % 0.3 % (0-4); Lymphocytes # 1.2 K/mcL (0.6-4.6); Lymphocytes % 12.8 %; Mean Corpuscular HGB Conc 30.9 g/dL (31.6-35.5); Mean Corpuscular Hemoglobin 26.7 pg (28.0-33.3); Mean Corpuscular Volume 86.3 fL (83.0-100.0); Mean Platelet Volume 10.3 fL (9.4-12.4); Monocytes # 0.6 K/mcL (0.0-1.3); Monocytes % 6.7 %; Platelet Count 155 K/mcL (140-400); Red Blood Count 3.15 M/mcL (4.19-5.50); Red Cell Distribution Width 20.6 % (11.5-14.5); Segmented Neutrophils % 80.2 %
[2019-02-13 05:28] LABS: Neutrophils # 7.5 K/mcL (1.6-8.9)
[2019-02-13 05:44] LABS: BUN/Creatinine Ratio 39 (6-26); Blood Urea Nitrogen 33 mg/dL (8-23); Calcium 6.7 mg/dL (8.6-10.3); Carbon Dioxide 20 mEq/L (23-29); Chloride 115 mEq/L (98-107); Glucose 179 mg/dL (70-105); Osmolality,Calculated 304 (280-300); Potassium 3.3 mEq/L (3.5-5.1); Sodium 141 mEq/L (136-145); eGFR For Non-African Americans > 60 (> 60)
[2019-02-13] MEDS: Folic Acid 1 MG TABLET PO SCH (08:09)
[2019-02-13] MEDS: BuPROPion XL (24 HR) 150 MG TABLET PO SCH (08:09)
[2019-02-13] MEDS: predniSONE 20 MG TABLET PO SCH (08:09)
[2019-02-13] MEDS: Sucralfate 1 GM TABLET PO SCH ×4 (08:09→21:08)
[2019-02-13] MEDS: Piperacillin/Tazobactam 3.375 GM in 0.9 % Sodium Chloride Mini Bag 100 ML IVPB SCH ×3 (08:10→23:54)
[2019-02-13] MEDS: *HR* Rivaroxaban 15 MG TABLET PO SCH ×2 (11:34→16:58)
--- NOTE | 2019-02-13 13:42 | Internal Med Progress Note ---
Hospitalist Progress Note - Encounter Date of Encounter: 02/13/19 Time of Encounter: 11:00 - Subjective Interval History: States that he is a little more short of breath than yesterday. Otherwise denies any chest pain or worsening cough. He continues to be very weak to adequately expectorate sputum. No fever overnight - Exam Vitals: Temp Pulse Resp BP Pulse Ox 97.4 F L 88 20 149/80 88 02/13/19 12:22 02/13/19 12:02/13/19 12:02/13/19 12:02/13/19 12:22 Exam: General: Patient is alert, oriented, no acute distress, cachectic Respiratory: Decreased breath sounds bilaterally, L>R. No significant wheezes Cardiovascular: Regular rate and rhythm. s1 and s2 heard Abdomen: Scaphoid abdomen, soft, non-tender MSK: L LE swelling Neuro: Alert and oriented x4. No focal deficit . - Assessment and Plan (1) Acute respiratory failure with hypoxia Current Visit: Yes Status: Acute Assessment and Plan: secondary to left lung collapse with extensive mucus plugging Initially thought to have malignant left-sided pleural effusion but bedside US did not show any fluid. also has progressive consolidation of the left upper lobe currently being treated for HCAP complicated by COPD exacerbation underwent bronchoscopy 02/12 which showed mucopurulent secretions in the left mainstem bronchus and in the left lower lobe. Appreciate pulm input. discussed with microbiology, prelim BAL result grew GNR but final result will only be made available tomorrow on IV Vanc/zosyn as MRSA swab +ve. Will d/c vanc as BAL is growing GNR only Continue steroid and bronchodilators follow up on BAL expiratory positive pressure, Chest PT Continue with oxygen via nasal cannula and keep sats above 92%. (2) DVT (deep venous thrombosis) Current Visit: Yes Status: Acute Assessment and Plan: doppler on 02/08 showed DVT in L CFV through tibial vein on heparin gtt, transition to Xarelto today per heme/onc recs (3) Non-small cell lung cancer (NSCLC) Current Visit: Yes Status: Chronic Assessment and Plan: Stage IV adenocarcinoma, was on palliative chemotherapy was also on PleurX catheter for malignant L pleural effusion, now removed poor functional status but pt is determined to continue treatment will likely be discharged to [facility] following outpatient Oncology appt with Dr. Castillo. (4) Multiple tracheobronchial mucus plugs Current Visit: Yes Status: Acute Assessment and Plan: bronchoscopy result as above high risk for recurrence due to extremely poor functional status and cachexia. Unable to expectorate very well chest PT, [place] (5) COPD (chronic obstructive pulmonary disease) Current Visit: No Status: Chronic Assessment and Plan: continue steroids, bronchodilators, and abx as above (6) CAD (coronary artery disease) Current Visit: No Status: Chronic Assessment and Plan: resume home meds including bb (7) Goals of care, counseling/discussion Current Visit: Yes Status: Acute (8) Severe protein-calorie malnutrition Current Visit: No Status: Chronic Assessment and Plan: Follow with nutrition (9) Hypothyroidism Current Visit: No Status: Chronic Assessment and Plan: Continue levothyroxine (10) Tobacco dependence Current Visit: No Status: Chronic Assessment and Plan: Declines nicotine patch (11) DVT prophylaxis Current Visit: No Status: Acute Assessment and Plan: transition to PO Xarelto today - Time Spent with Patient Total time spent is greater than 50% in coordination of care (as documented) at patient's floor/unit and/or counseling patient: 25 - 35 minutes Plan of Care Discussed with: patient Internal Medicine: Result - Labs CBC & Chem 7: 02/13/19 05:00 02/13/19 05:00 Labs: Short CBC 02/13/19 Range/Units 05:00 WBC 9.4 D (4.3-11.1) K/mcL Hgb 8.4 L (12.9-16.9) g/dL Hct 27.2 L (37.5-50.1) % Plt Count 155 (140-400) K/mcL Neutrophils # 7.5 (1.6-8.9) K/mcL BMP 02/13/19 05:00 Sodium 141 Potassium 3.3 L Chloride 115 H Carbon Dioxide 20 L BUN 33 H Creatinine 0.85 Glucose 179 H Calcium 6.7 L - ABG Interpretation ABG results: PT/INR, D-dimer PT 17.6 Seconds (9.4-12.1) H 02/10/19 08:31 Consult Discharge Plan - Plan Referrals: Jerrod Valentino MD [Primary Care Provider] - (ECF Placement) Rio Castillo MD [Partnered Physician] - 02/20/19 8:30 am (Please follow up as schedule....) (2) DVT (deep venous thrombosis) Qualifiers: DVT location: lower extremity Affected thrombotic vein of extremity: popliteal Chronicity: acute Laterality: left Qualified Code(s): I82.432 - Acu te embolism and thrombosis of left popliteal vein (3) Non-small cell lung cancer (NSCLC) Qualifiers: Laterality: left Qualified Code(s): C34.92 - Malignant neoplasm of unspecified part of left bronchus or lung (5) COPD (chronic obstructive pulmonary disease) Qualifiers: COPD type: COPD with acute exacerbation Qualified Code(s): J44.1 - Chronic obstructive pulmonary disease with (acute) exacerbation (6) CAD (coronary artery disease) Qualifiers: Coronary Disease-Associated Artery/Lesion type: unspecified vessel or lesion type [place] vs. transplanted heart: [place] heart Associated angina: without an [place] Qualified Code(s): I25.10 - Atherosclerotic heart disease of [place] c oronary artery without angina pectoris (9) Hypothyroidism Qualifiers: Hypothyroidism type: unspecified Qualified Code(s): E03.9 - Hypothyroidism, unspecified
[2019-02-13] MEDS ORDERED: Furosemide 20 MG/2 ML VIAL IVP ONE (14:43)
[2019-02-13] MEDS: Metoprolol XL (24 HR) Succ 25 MG TAB.ER.24H PO SCH (14:58)
--- NOTE | 2019-02-13 15:03 | Event Note ---
Date of Encounter: 02/13/19 Time of Encounter: 12:00 BAL cultures growing Gram negative rods please follow cultures . Pulmonary will sign off.
[2019-02-13] MEDS ORDERED: Aminoglycoside Consult 1 EACH MC ONE (17:44)
[2019-02-13] MEDS: Heparin 25,000 UNIT/250 ML D5W 25,000 UNIT/250 ML IV.SOLN IVC SCH (22:25)
[2019-02-13] MEDS ORDERED: Piperacillin/Tazobactam 3.375 GM VIAL ONE (23:21)
[2019-02-14] MEDS: Ipratropium/Albuterol Neb 3 ML IH SCH ×6 (00:06→20:35)
[2019-02-14 04:33] LABS: Basophils % 0.1 %; Hematocrit 27.3 % (37.5-50.1); Hemoglobin 8.6 g/dL (12.9-16.9); Immature Granulocytes % 0.5 % (0-4); Lymphocytes # 0.9 K/mcL (0.6-4.6); Lymphocytes % 10.2 %; Mean Corpuscular HGB Conc 31.5 g/dL (31.6-35.5); Mean Corpuscular Hemoglobin 26.9 pg (28.0-33.3); Mean Corpuscular Volume 85.3 fL (83.0-100.0); Mean Platelet Volume 10.1 fL (9.4-12.4); Monocytes # 0.5 K/mcL (0.0-1.3); Monocytes % 5.5 %; Neutrophils # 7.4 K/mcL (1.6-8.9); Platelet Count 153 K/mcL (140-400); Red Cell Distribution Width 20.7 % (11.5-14.5); Segmented Neutrophils % 83.7 %
[2019-02-14 04:51] LABS: BUN/Creatinine Ratio 35 (6-26); Blood Urea Nitrogen 28 mg/dL (8-23); Carbon Dioxide 24 mEq/L (23-29); Chloride 113 mEq/L (98-107); Glucose 63 mg/dL (70-105); Magnesium 1.7 mg/dL (1.6-2.6); Osmolality,Calculated 302 (280-300); Potassium 3.7 mEq/L (3.5-5.1); Sodium 144 mEq/L (136-145); eGFR For Non-African Americans > 60 (> 60)
[2019-02-14] MEDS: Metoprolol XL (24 HR) Succ 25 MG TAB.ER.24H PO SCH (07:47)
[2019-02-14] MEDS: predniSONE 20 MG TABLET PO SCH (07:47)
[2019-02-14] MEDS: *HR* Rivaroxaban 15 MG TABLET PO SCH ×2 (07:47→17:38)
[2019-02-14] MEDS: Piperacillin/Tazobactam 3.375 GM in 0.9 % Sodium Chloride Mini Bag 100 ML IVPB SCH ×2 (07:47→15:52)
[2019-02-14] MEDS: BuPROPion XL (24 HR) 150 MG TABLET PO SCH (07:57)
[2019-02-14] MEDS: Folic Acid 1 MG TABLET PO SCH (07:59)
[2019-02-14] MEDS: Sucralfate 1 GM TABLET PO SCH ×4 (07:59→20:13)
--- NOTE | 2019-02-14 11:41 | Palliative Progress Note ---
<Layo Byrne - Last Filed: 02/14/19 12:58> Date of Encounter: 02/14/19 Time of Encounter: 11:38 - Assessment and plan (1) Goals of care, counseling/discussion Current Visit: Yes Status: Acute Assessment and plan: Had extensive goals of care discussion with the patient, Dr Armstrong present as well. Pt is aware his clinical status continues to worsen. He recognizes that he is weak and not able to care for himself. Recommended pt change his CODE STATUS. Pt elected to changed to DNR-CCA-DNI. States he knows that if his heart stops and he quits breathing that CPR and aggressive measures will not heal him. DNR s delacruz form signed and order placed. Attempted to discuss appointing a POA with the patient. He states his family does not speak to him, however he does have a nephew who has visited him during this admission. Inquired as to if the nephew would be a suitable POA, and pt stated he wanted to speak with the nephew before deciding. (2) Palliative care encounter Current Visit: No Status: Acute (3) Acute respiratory failure with hypoxia Current Visit: Yes Status: Acute Assessment and plan: Required BiPAP yesterday 2/2 mucus plugs, HCAP, and COPD (4) Malignant cachexia Current Visit: Yes Status: Acute Assessment and plan: Pt reports his appetite is unchanged. He ate about 10% of his lunch prior to our encounter. (5) Non-small cell lung cancer (NSCLC) Current Visit: Yes Status: Chronic Assessment and plan: Stage 4 adenocarcinoma Previously underwent palliative chemotherapy and had pleurX catheter which has been removed Qualifiers: Laterality: left Qualified Code(s): C34.92 - Malignant neoplasm of unspecified part of left bronchus or lung - Time Spent With Patient Total time spent is greater than 50% in coordination of care (as documented) at patient's floor/unit and/or counseling patient: - Subjective Interval history: Pt states he is feeling "not so good" today. Reports he is becoming progressively more short of breath. He is complaining of some discomfort on his sacrum and of his shoulders. - Constitutional Vitals: Abnormal lab results RBC 3.20 M/mcL (4.19-5.50) L 02/14/19 04:19 Hgb 8.6 g/dL (12.9-16.9) L 02/14/19 04:19 Hct 27.3 % (37.5-50.1) L 02/14/19 04:19 MCH 26.9 pg (28.0-33.3) L 02/14/19 04:19 MCHC 31.5 g/dL (31.6-35.5) L 02/14/19 04:19 RDW 20.7 % (11.5-14.5) H 02/14/19 04:19 Plt Count 120 K/mcL (140-400) L 02/11/19 02:40 PT 17.6 Seconds (9.4-12.1) H 02/10/19 08:31 Heparin Anti-Xa, Unfract 0.78 IU/mL (0.30-0.70) H 02/13/19 05:00 Potassium 3.3 mEq/L (3.5-5.1) L 02/13/19 05:00 Chloride 113 mEq/L (98-107) H 02/14/19 04:19 Carbon Dioxide 20 mEq/L (23-29) L 02/13/19 05:00 BUN 28 mg/dL (8-23) H 02/14/19 04:19 35 (6-26) H 02/14/19 04:19 Glucose 63 mg/dL (70-105) L 02/14/19 04:19 POC Glucose 165 mg/dL (70-99) H 02/13/19 15:56 302 (280-300) H 02/14/19 04:19 Calcium 7.0 mg/dL (8.6-10.3) L 02/14/19 04:19 Venous Ioniz Calcium 1.12 mmol/L (1.15-1.35) L 02/10/19 01:50 Phosphorus 2.6 mg/dL (2.7-4.5) L 02/12/19 05:30 Iron 30 mcg/dL (65-175) L 02/10/19 17:48 101 mg/dL (203-362) L 02/10/19 17:48 791 ng/mL (20-250) H 02/10/19 17:48 AST 59 Units/L (13-39) H 02/10/19 01:35 125 Units/L (34-104) H 02/10/19 01:35 5.0 g/dL (6.4-8.9) L 02/10/19 01:35 2.1 g/dL (3.5-5.7) L 02/10/19 01:35 0.7 (1.1-2.2) L 02/10/19 01:35 7.6 mg/dL (17.0-34.0) L 02/09/19 04:42 Vitamin B12 > 1500 pg/mL (250-1100) H 02/10/19 17:48 0.41 ng/mL (0.00-0.15) H 02/10/19 17:48 TSH 5.854 mcIU/mL (0.340-5.600) H 02/09/19 04:42 Moderate (Negative) H 02/09/19 01:44 15-30 per hpf (0-3) H 02/09/19 01:44 Fluid Appearance Hazy (Clear) A 02/12/19 Unknown Positive (Negative) A 02/10/19 18:40 General appearance: Present: cooperative, thin - Head Head exam: Present: atraumatic, normal inspection, normocephalic - Eye Eye exam: Present: normal appearance, PERRL - Respiratory Respiratory exam: Present: accessory muscle use, decreased breath sounds, tachypnea. Absent: chest wall tenderness - Cardiovascular Cardiovascular exam: Present: RRR, +S1, +S2 - Extremities Exam Extremities exam: Present: normal inspection. Absent: pedal edema - Neurological Exam Neurological exam: Present: alert, oriented X3. Absent: facial droop, speech deficit - Skin Skin exam: Present: dry, intact, normal color, warm Palliative Quality Palliative Quality: Screen for Code Status: Yes, Screen for Goals of Care: Yes, Screen for Pain: Yes, If Pain Regimen Started, Initiate Bowel Regimen: NA, Screen for Nausea/Vomitting: Yes Code Status: 02/08/19 17:56 Resuscitation Status: Active [RES] Routine Comment: Resuscitation Status: Full Code 02/14/19 11:37 Resuscitation Status: Active [RES] Routine Comment: Resuscitation Status: [id number] - Labs CBC & Chem 7: 02/14/19 04:19 02/14/19 04:19 Labs: Laboratory Results - last 24 hr 02/13/19 02/13/19 02/13/19 07:53 12:11 15:56 WBC RBC Hgb Hct MCV MCH MCHC RDW Plt Count MPV Immature Gran % Seg Neutrophils % Lymphocytes % Monocytes % Eosinophils % Basophils % Neutrophils # Lymphocytes # Monocytes # Eosinophils # Basophils # Sodium Potassium Chloride Carbon Dioxide BUN Creatinine Est GFR ( Amer) Est GFR (Non-Af Amer) BUN/Creatinine Ratio Glucose POC Glucose 175 H 216 H 165 H Calculated Osmolality Calcium Magnesium Vancomycin Trough 02/13/19 02/14/19 02/14/19 19:00 04:19 04:19 WBC 8.8 RBC 3.20 L Hgb 8.6 L Hct 27.3 L MCV 85.3 MCH 26.9 L MCHC 31.5 L RDW 20.7 H Plt Count 153 MPV 10.1 Immature Gran % 0.5 Seg Neutrophils % 83.7 Lymphocytes % 10.2 Monocytes % 5.5 Eosinophils % 0.0 Basophils % 0.1 Neutrophils # 7.4 Lymphocytes # 0.9 Monocytes # 0.5 Eosinophils # 0.0 Basophils # 0.0 Sodium 144 Potassium 3.7 Chloride 113 H Carbon Dioxide 24 BUN 28 H Creatinine 0.80 Est GFR ( Amer) > 60 Est GFR (Non-Af Amer) > 60 BUN/Creatinine Ratio 35 H Glucose 63 L POC Glucose Calculated Osmolality 302 H Calcium 7.0 L Magnesium 1.7 Vancomycin Trough 9 02/14/19 07:24 WBC RBC Hgb Hct MCV MCH MCHC RDW Plt Count MPV Immature Gran % Seg Neutrophils % Lymphocytes % Monocytes % Eosinophils % Basophils % Neutrophils # Lymphocytes # Monocytes # Eosinophils # Basophils # Sodium Potassium Chloride Carbon Dioxide BUN Creatinine Est GFR ( Amer) Est GFR (Non-Af Amer) BUN/Creatinine Ratio Glucose POC Glucose 71 Calculated Osmolality Calcium Magnesium Vancomycin Trough - Impressions Impressions Chest X-Ray 02/14/19 08:15 IMPRESSION: No significant change in left-sided effusion and airspace disease. D/ / Ajay Tidwell MD / Ajay Tidwell MD Interpreting Provider: Ajay Tidwell MD - ABG Interpretation ABG results: PT/INR, D-dimer PT 17.6 Seconds (9.4-12.1) H 02/10/19 08:31 Palliative Scale - Palliative Performance Scale How ambulatory is this patient?: Totally bed bound What is patient's level of activity and evidence of disease?: Unable to do any work, Extensive disease How much self-care assistance does patient require?: Mainly assistance How much oral intake does the patient have?: Normal or reduced What is this patient's level of consciousness?: Full Palliative Performance Score: 30 % Consult Discharge Plan - Plan Referrals: Jerrod Valentino MD [Primary Care Provider] - (ECF Placement) Rio Castillo MD [Partnered Physician] - 02/20/19 8:30 am (Please follow up as schedule....) <Liliam Armstrong - Last Filed: 02/14/19 14:10> Date of Encounter: 02/14/19 - Assessment and plan (1) Goals of care, counseling/discussion Current Visit: Yes Status: Acute (2) Palliative care encounter Current Visit: No Status: Acute (3) Generalized pain Current Visit: No Status: Acute (4) Malignant cachexia Current Visit: Yes Status: Acute - Time Spent With Patient Total time spent is greater than 50% in coordination of care (as documented) at patient's floor/unit and/or counseling patient: - Constitutional Vitals: Abnormal lab results RBC 3.20 M/mcL (4.19-5.50) L 02/14/19 04:19 Hgb 8.6 g/dL (12.9-16.9) L 02/14/19 04:19 Hct 27.3 % (37.5-50.1) L 02/14/19 04:19 MCH 26.9 pg (28.0-33.3) L 02/14/19 04:19 MCHC 31.5 g/dL (31.6-35.5) L 02/14/19 04:19 RDW 20.7 % (11.5-14.5) H 02/14/19 04:19 Plt Count 120 K/mcL (140-400) L 02/11/19 02:40 PT 17.6 Seconds (9.4-12.1) H 02/10/19 08:31 Heparin Anti-Xa, Unfract 0.78 IU/mL (0.30-0.70) H 02/13/19 05:00 Potassium 3.3 mEq/L (3.5-5.1) L 02/13/19 05:00 Chloride 113 mEq/L (98-107) H 02/14/19 04:19 Carbon Dioxide 20 mEq/L (23-29) L 02/13/19 05:00 BUN 28 mg/dL (8-23) H 02/14/19 04:19 35 (6-26) H 02/14/19 04:19 Glucose 63 mg/dL (70-105) L 02/14/19 04:19 POC Glucose 165 mg/dL (70-99) H 02/13/19 15:56 302 (280-300) H 02/14/19 04:19 Calcium 7.0 mg/dL (8.6-10.3) L 02/14/19 04:19 Venous Ioniz Calcium 1.12 mmol/L (1.15-1.35) L 02/10/19 01:50 Phosphorus 2.6 mg/dL (2.7-4.5) L 02/12/19 05:30 Iron 30 mcg/dL (65-175) L 02/10/19 17:48 101 mg/dL (203-362) L 02/10/19 17:48 791 ng/mL (20-250) H 02/10/19 17:48 AST 59 Units/L (13-39) H 02/10/19 01:35 125 Units/L (34-104) H 02/10/19 01:35 5.0 g/dL (6.4-8.9) L 02/10/19 01:35 2.1 g/dL (3.5-5.7) L 02/10/19 01:35 0.7 (1.1-2.2) L 02/10/19 01:35 7.6 mg/dL (17.0-34.0) L 02/09/19 04:42 Vitamin B12 > 1500 pg/mL (250-1100) H 02/10/19 17:48 0.41 ng/mL (0.00-0.15) H 02/10/19 17:48 TSH 5.854 mcIU/mL (0.340-5.600) H 02/09/19 04:42 Moderate (Negative) H 02/09/19 01:44 15-30 per hpf (0-3) H 02/09/19 01:44 Fluid Appearance Hazy (Clear) A 02/12/19 Unknown Positive (Negative) A 02/10/19 18:40 - Attending Attestation I performed a history and physical examination of the patient and discussed his management with the resident. I reviewed the residents note and agree with the documented findings and plan of care, adding as follow: Patient yesterday had episodes of desaturation overnight, and needed BiPAP. today he was feeling better, but remained SOB. 20 minutes advanced care planning discussion along with resident Dr. Byrne. Patient was made aware that his functional status have declined, and his disease is progressing. For that reason, patient is not likely to become a candidate for further oncology treatment. Patient was educated again on CPR and intubation, and explained why this is not recommended in his case. Patient states that he w ould not want to be on long-term life support, and understands that CPR will not resolve his underlying cancer. He agreed for DNRCCA and DNI. Patient is not yet ready for transition to comfort care. State form was drafted and signed. Discussed at length the need of a surrogate decision maker, patient stated that he has been receiving visits from a nephew, but does not have his contact. He agreed to have request it if he was to visit again. Dr. Palacios was updated, palliative care will continue to follow. Palliative Quality Code Status: 02/08/19 17:56 Resuscitation Status: Active [RES] Routine Comment: Resuscitation Status: Full Code 02/14/19 11:37 Resuscitation Status: Active [RES] Routine Comment: Resuscitation Status: [id number] - Labs CBC & Chem 7: 02/14/19 04:19 02/14/19 04:19 Labs: Laboratory Results - last 24 hr 02/13/19 02/13/19 02/13/19 07:53 15:56 19:00 WBC RBC Hgb Hct MCV MCH MCHC RDW Plt Count MPV Immature Gran % Seg Neutrophils % Lymphocytes % Monocytes % Eosinophils % Basophils % Neutrophils # Lymphocytes # Monocytes # Eosinophils # Basophils # Sodium Potassium Chloride Carbon Dioxide BUN Creatinine Est GFR ( Amer) Est GFR (Non-Af Amer) BUN/Creatinine Ratio Glucose POC Glucose 175 H 165 H Calculated Osmolality Calcium Magnesium Vancomycin Trough 9 02/14/19 02/14/19 02/14/19 04:19 04:19 07:24 WBC 8.8 RBC 3.20 L Hgb 8.6 L Hct 27.3 L MCV 85.3 MCH 26.9 L MCHC 31.5 L RDW 20.7 H Plt Count 153 MPV 10.1 Immature Gran % 0.5 Seg Neutrophils % 83.7 Lymphocytes % 10.2 Monocytes % 5.5 Eosinophils % 0.0 Basophils % 0.1 Neutrophils # 7.4 Lymphocytes # 0.9 Monocytes # 0.5 Eosinophils # 0.0 Basophils # 0.0 Sodium 144 Potassium 3.7 Chloride 113 H Carbon Dioxide 24 BUN 28 H Creatinine 0.80 Est GFR ( Amer) > 60 Est GFR (Non-Af Amer) > 60 BUN/Creatinine Ratio 35 H Glucose 63 L POC Glucose 71 Calculated Osmolality 302 H Calcium 7.0 L Magnesium 1.7 Vancomycin Trough - Impressions Impressions Chest X-Ray 02/14/19 08:15
--- NOTE | 2019-02-14 12:06 | Internal Med Progress Note ---
Hospitalist Progress Note - Encounter Date of Encounter: 02/14/19 Time of Encounter: 08:15 - Subjective Interval History: Had episodes of desaturation intermittently yesterday which eventually improved after BiPaP and 1 dose of lasix. Currently maintaining 100% on 6L and reports feeling slightly better than yesterday. More cooperative with respiratory t herapy's intervention. - Exam Vitals: Temp Pulse Resp BP Pulse Ox 97.7 F 86 18 134/77 96 02/14/19 11:55 02/14/19 11:55 02/14/19 11:55 02/14/19 11:55 02/14/19 11:55 Exam: General: Patient is alert, oriented, no acute distress, cachectic Respiratory: Decreased breath sounds bilaterally, L>R. No significant wheezes Cardiovascular: Regular rate and rhythm. s1 and s2 heard Abdomen: Scaphoid abdomen, soft, non-tender MSK: L LE swelling Neuro: Alert and oriented x4. No focal deficit . - Assessment and Plan (1) Acute respiratory failure with hypoxia Current Visit: Yes Status: Acute Assessment and Plan: secondary to left lung collapse with extensive mucus plugging Initially thought to have malignant left-sided pleural effusion but bedside US did not show any fluid. also has progressive consolidation of the left upper lobe currently being treated for HCAP complicated by COPD exacerbation underwent bronchoscopy 02/12 which showed mucopurulent secretions in the left mainstem bronchus and in the left lower lobe. Appreciate pulm input. prelim BAL result grew GNR, on IV Zosyn Continue steroid and bronchodilators expiratory positive pressure, Chest PT prognosis remains poor as pt himself is not able to clear phlegm/secretions well, high risk for recurrent mucus plug resulting in worsening hypoxia CXR repeated today; no significant change Continue with oxygen via nasal cannula and keep sats above 92%. appreciate palliative input, code status switched to DNR-CCA-DNI BiPaP PRN (2) DVT (deep venous thrombosis) Current Visit: Yes Status: Acute Assessment and Plan: doppler on 02/08 showed DVT in L CFV through tibial vein transitioned to Xarelto today per heme/onc recs (3) COPD exacerbation Current Visit: Yes Status: Acute Assessment and Plan: continue steroids, bronchodilators, and abx as above (4) Multiple tracheobronchial mucus plugs Current Visit: Yes Status: Acute Assessment and Plan: bronchoscopy result as above high risk for recurrence due to extremely poor functional status and cachexia. Unable to expectorate very well chest PT, Acapella (5) Non-small cell lung cancer (NSCLC) Current Visit: Yes Status: Chronic Assessment and Plan: Stage IV adenocarcinoma, was on palliative chemotherapy was also on PleurX catheter for malignant L pleural effusion, now removed poor functional status but pt is determined to continue treatment will likely be discharged to ECF following outpatient Oncology appt with Dr. Castillo. (6) CAD (coronary artery disease) Current Visit: No Status: Chronic Assessment and Plan: resume home meds including bb (7) Hypothyroidism Current Visit: No Status: Chronic Assessment and Plan: Continue levothyroxine (8) Severe protein-calorie malnutrition Current Visit: No Status: Chronic Assessment and Plan: Follow with nutrition (9) Goals of care, counseling/discussion Current Visit: Yes Status: Acute Assessment and Plan: appreciate palliative input, DNR-CCA-DNI (10) Tobacco dependence Current Visit: No Status: Chronic Assessment and Plan: Declines nicotine patch - Time Spent with Patient Total time spent is greater than 50% in coordination of care (as documented) at patient's floor/unit and/or counseling patient: 25 - 35 minutes Plan of Care Discussed with: patient (discussed with RN and CM) Internal Medicine: Result - Labs CBC & Chem 7: 02/14/19 04:19 02/14/19 04:19 Labs: Short CBC 02/14/19 Range/Units 04:19 WBC 8.8 (4.3-11.1) K/mcL Hgb 8.6 L (12.9-16.9) g/dL Hct 27.3 L (37.5-50.1) % Plt Count 153 (140-400) K/mcL Neutrophils # 7.4 (1.6-8.9) K/mcL BMP 02/14/19 04:19 Sodium 144 Potassium 3.7 Chloride 113 H Carbon Dioxide 24 BUN 28 H Creatinine 0.80 Glucose 63 L Calcium 7.0 L - ABG Interpretation ABG results: PT/INR, D-dimer PT 17.6 Seconds (9.4-12.1) H 02/10/19 08:31 - Impressions Impressions Chest X-Ray 02/14/19 08:15 IMPRESSION: No significant change in left-sided effusion and airspace disease. D/ / Ajay Tidwell MD / Ajay Tidwell MD Interpreting Provider: Ajay Tidwell MD Consult Discharge Plan - Plan Referrals: Jerrod Valentino MD [Primary Care Provider] - (ECF Placement) Rio Castillo MD [Partnered Physician] - 02/20/19 8:30 am (Please follow up as schedule....) (2) DVT (deep venous thrombosis) Qualifiers: DVT location: lower extremity Affected thrombotic vein of extremity: popliteal Chronicity: acute Laterality: left Qualified Code(s): I82.432 - Acute embolism and thrombosis of left popliteal vein (5) Non-small cell lung cancer (NSCLC) Qualifiers: Laterality: left Qualified Code(s): C34.92 - Malignant neoplasm of unspecified part of left bronchus or lung (6) CAD (coronary artery disease) Qualifiers: Coronary Disease-Associated Artery/Lesion type: unspecified vessel or lesion type [place] vs. transplanted heart: [place] heart Associated angina: without angina Qualified Code(s): I25.10 - Atherosclerotic heart disease of [place] coronary artery without angina pectoris (7) Hypothyroidism Qualifiers: Hypothyroidism type: unspecified Qualified Code(s): E03.9 - Hypothyroidism, unspecified
[2019-02-14] MEDS: *HR* HYDROcodone/Acet 5/325 mg TABLET PO PRN (20:12)
[2019-02-15] MEDS: Piperacillin/Tazobactam 3.375 GM in 0.9 % Sodium Chloride Mini Bag 100 ML IVPB SCH ×3 (00:24→16:37)
[2019-02-15] MEDS: Ipratropium/Albuterol Neb 3 ML IH SCH ×5 (00:30→15:26)
[2019-02-15] MEDS: Folic Acid 1 MG TABLET PO SCH (08:22)
[2019-02-15] MEDS: predniSONE 20 MG TABLET PO SCH (08:22)
[2019-02-15] MEDS: Metoprolol XL (24 HR) Succ 25 MG TAB.ER.24H PO SCH (08:22)
[2019-02-15] MEDS: BuPROPion XL (24 HR) 150 MG TABLET PO SCH (08:22)
[2019-02-15] MEDS: *HR* Rivaroxaban 15 MG TABLET PO SCH ×2 (08:22→16:37)
[2019-02-15] MEDS: Sucralfate 1 GM TABLET PO SCH ×3 (08:22→16:37)
--- NOTE | 2019-02-15 10:07 | Discharge Summary ---
- NOTES TO OUTPATIENT PROVIDER Notes to Outpatient Provider: Follow-up with oncology as outpatient for consideration for chemotherapy. Prognosis extremely guarded Orders not resulted at time of discharge: Pending orders 02/12/19 AFB Culture, Respiratory [TB] Routine AFB Smear [TB] Routine Fungal Culture [MYC] Routine Date of Encounter: 02/15/19 Time of Encounter: 08:00 - Discharge Diagnosis (1) Malignant cachexia Priority: Secondary Status: Acute (2) Goals of care, counseling/discussion Priority: Secondary Status: Acute (3) Non-small cell lung cancer (NSCLC) Priority: Secondary Status: Chronic Qualifiers: Laterality: left Qualified Code(s): C34.92 - Malignant neoplasm of unspecified part of left bronchus or lung (4) Acute respiratory failure with hypoxia Priority: Primary Status: Acute (5) Palliative care encounter Priority: Secondary Status: Acute (6) DVT (deep venous thrombosis) Priority: Secondary Status: Acute Qualifiers: DVT location: lower extremity Affected thrombotic vein of extremity: popliteal Chronicity: acute Laterality: left Qualified Code(s): I82.432 - Acute embolism and thrombosis of left popliteal vein (7) Multiple tracheobronchial mucus plugs Priority: Secondary Status: Acute (8) CAD (coronary artery disease) Priority: Secondary Status: Chronic Qualifiers: Coronary Disease-Associated Artery/Lesion type: unspecified vessel or lesion type [place] vs. transplanted heart: [place] heart Associated angina: without angina Qualified Code(s): I25.10 - Atherosclerotic heart disease of [place] coronary artery without angina pectoris (9) Severe protein-calorie malnutrition Priority: Secondary Status: Chronic Hospital course: Mr. Hoover is a 68 year old male with history of adenocarcinoma of the lung with left-sided pleural effusion, who was on Pleurx catheter at one point which is now removed, was admitted on 02/08 due to L LE DVT and acute on chronic hypoxic respiratory failure secondary to left mainstem mucous plug. Initially thought to have recurrent L pleural effusion on chest imaging but did not have any significant amount of fluid on bedside US performed on 02/10 by IR. Instead, CT cheset showed findings compatible with aspirated material or extensive mucoid impaction on L mainstem bronchus associated with near complete collapse of the L LL. Also noted to have progressive consolidation of the left upper lobe which may represent infection or lymphangitic carcinomatosis. Patient was started on steroid and IV antibiotics and underwent bronchoscopy on 02/12 which showed mucopurulent secretions in L mainstem bronchus and L LL. BAL came back for P. aeruginosa rosales-sensitive and abx was switched to PO Levaquin for a total of 10 day course. He will also complete a total of 2 week steroid taper. Given his significant cachexia, he is not a good candidate even for palliative chemotherapy but pt is determined to continue treatment pending his rehab course at [facility]. His prognosis remains extremely guarded. He would require PRN BiPaP at [facility]. AC was transitioned to Xarelto per Hematology recommendation. Discharge discussed with: patient, nurse, social work, case management, seo consultant - Time Spent with Patient Total time spent providing and/or coordinating discharge services: 37 mins - Discharge Medications Prescriptions: New levoFLOXacin [Levaquin] 750 mg PO DAILY 5 Days #5 tablet GuaiFENesin ER [Mucinex] 600 mg PO BID PRN #30 tbbp.12hr PRN Reason: Congestion predniSONE [PredniSONE] 40 mg PO DAILY #11 tablet Rivaroxaban [Xarelto] 15 mg PO BIDWM #37 tablet Rivaroxaban [Xarelto] 20 mg PO 1700 #30 tablet Continued Atorvastatin Calcium [Lipitor] 80 mg PO HS Metoprolol XL (24 HR) Succ [Toprol Xl] 25 mg PO DAILY Ipratropium/Albuterol Neb [Duoneb] 3 ml IH Q8HR PRN PRN Reason: Shortness Of Breath Sertraline [Zoloft] 50 mg PO DAILY Bupropion HCl [Wellbutrin Xl] 300 mg PO DAILY Levothyroxine [Synthroid] 50 mcg PO QAM Folic Acid 1 mg PO DAILY Buspirone HCl [Buspar] 15 mg PO BID Oxycodone HCl/Acetaminophen [Percocet 5-325 mg Tablet] 1 tab PO Q4H PRN 3 Days #12 tablet PRN Reason: Pain Discontinued Warfarin [Coumadin] 1 mg PO DAILY Home Medications: Atorvastatin Calcium [Lipitor] 80 mg PO HS 11/13/18 [History] Bupropion HCl [Wellbutrin Xl] 300 mg PO DAILY 02/10/19 [History] Buspirone HCl [Buspar] 15 mg PO BID 02/10/19 [History] Folic Acid 1 mg PO DAILY 02/10/19 [History] Ipratropium/Albuterol Neb [Duoneb] 3 ml IH Q8HR PRN 02/10/19 [History] Levothyroxine [Synthroid] 50 mcg PO QAM 02/10/19 [History] Metoprolol XL (24 HR) Succ [Toprol Xl] 25 mg PO DAILY 02/10/19 [History] Sertraline [Zoloft] 50 mg PO DAILY 02/10/19 [History] GuaiFENesin ER [Mucinex] 600 mg PO BID PRN #30 tbbp.12hr 02/15/19 [Rx] Oxycodone HCl/Acetaminophen [Percocet 5-325 mg Tablet] 1 tab PO Q4H PRN 3 Days #12 tablet 02/15/19 [Rx] Rivaroxaban [Xarelto] 15 mg PO BIDWM #37 tablet 02/15/19 [Rx] Rivaroxaban [Xarelto] 20 mg PO 1700 #30 tablet 02/15/19 [Rx] levoFLOXacin [Levaquin] 750 mg PO DAILY 5 Days #5 tablet 02/15/19 [Rx] predniSONE [PredniSONE] 40 mg PO DAILY #11 tablet 02/15/19 [Rx] Allergies/Adverse Reactions: Allergy/AdvReac Type Severity Reaction Status Date / Time No Known Allergies Allergy Verified 01/29/19 13:07 Date of admission: 02/08/19 17:59 Primary care physician: Jerrod Valentino MD Consults: 02/08/19 17:28 Consult to Nutrition [CONS] Routine Comment: Consulting Provider: NUTRITION Reason for Dietary Consult: MST Score PO Supplementation Consult to Cad [employer]sman [CONS] Routine Reason for SW Consult: Discharge planning, ECF 02/08/19 17:30 Consult to Palliative Care [CONS] Routine Comment: Consulting Provider: Palliative Care Isabella Reason for Consult: code change/terminal illness/palliative chemo currently Call Completed: No 02/08/19 19:59 Consult to Occupational Therapy [CONS] Routine Comment: Evaluate, develop and implement POC Reason for Consult: falls Does patient have active BEDREST order?: No Is patient medically & hemodynamically stable?: Yes Patient assessed for mobility or mobilized this visit?: No Consult to Physical Therapy [CONS] Routine Comment: Evaluate, develop and implement POC Reason for Consult: falls Does patient have active BEDREST order?: No Is patient medically & hemodynamically stable?: Yes Patient assessed for mobility or mobilized this visit?: No 02/09/19 14:05 Consult to Oncology [CONS] Routine Consulting Provider: [facility] Reason for Consult: lung cancer follows withcharles [facility] oncology Call Completed: Yes 02/09/19 14:14 Consult to Case Management [CONS] Routine Comment: Consult to Nutrition [CONS] Routine Comment: Consulting Provider: NUTRITION Reason for Dietary Consult: PO Supplementation Consult to Physical Therapy [CONS] Routine Comment: Evaluate, develop and implement POC Reason for Consult: dispostion Does patient have active BEDREST order?: No Is patient medically & hemodynamically stable?: Yes Patient assessed for mobility or mobilized this visit?: Yes OT [Consult to Occupational Therapy] [CONS] Routine Comment: Evaluate, develop and implement POC Reason for Consult: disposition Does patient have active BEDREST order?: No Is patient medically & hemodynamically stable?: Yes Patient assessed for mobility or mobilized this visit?: Yes 02/09/19 18:43 Consult to Invasive Line Access Team [CONS] Routine Reason for Consult: limited iv access Line Type: EPIV 02/10/19 08:00 Consult to Interventional Radiology [CONS] Routine Consulting Provider: Radiology Interventional Cols Reason for Consult: thoracentesis for left pleural effusion Time Notified: 18:12 Call Completed: Yes 02/10/19 16:20 Consult to Pulmonology [CONS] Routine Consulting Provider: [facility]m [facility] Reason for Consult: Increased size of thick walled cavitary nodule laterally in the right middle lobe, either cavitary pneumonia or cavitary intrapulmonary metastasis Multiple filling defects seen in left upper lobe and left lower lobe airways likely mucous plugging Call Completed: No - Constitutional Vitals: Temp Pulse Resp BP Pulse Ox 95.0 F L 60 17 137/79 99 02/15/19 07:22 02/15/19 07:22 02/15/19 07:30 02/15/19 07:22 02/15/19 07:30 General appearance: Present: cachectic, underweight Exam: General: Patient is alert, oriented, no acute distress, cachectic Respiratory: Decreased breath sounds bilaterally, L>R. No significant wheezes Cardiovascular: Regular rate and rhythm. s1 and s2 heard Abdomen: Scaphoid abdomen, soft, non-tender MSK: L LE swelling Neuro: Alert and oriented x4. No focal deficit - Patient Status Disposition: Transfer SNF Condition: Serious - Discharge Instructions Instructions: Acute Respiratory Distress Syndrome (DC), Chronic Obstructive Pulmonary Disease (DC), Hypothyroidism (DC) Follow Up With: Jerrod Valentino MD [Primary Care Provider] - (ECF Placement) Rio Castillo MD [Partnered Physician] - 02/20/19 8:30 am (Please follow up as schedule....) Additional Instructions: Complete a total of 10 days of abx and 2 week steroid taper REhab at [facility]; pending his course, he may be considered for palliative chemotherapy but his current functional status remains extremely poor Extremely guarded prognosis - Diet and Activity Activity: as per physical therapy Diet: regular diet
--- NOTE | 2019-02-15 10:13 | Physician Discharge Referral ---
ExtendedCare Referral Info Institutional Level of Care: Skilled - Diagnosis (1) Malignant cachexia Priority: Secondary Status: Acute (2) Goals of care, counseling/discussion Priority: Secondary Status: Acute (3) Non-small cell lung cancer (NSCLC) Priority: Secondary Status: Chronic (4) Acute respiratory failure with hypoxia Priority: Primary Status: Acute (5) Palliative care encounter Priority: Secondary Status: Acute (6) DVT (deep venous thrombosis) Priority: Secondary Status: Acute (7) Multiple tracheobronchial mucus plugs Priority: Secondary Status: Acute (8) CAD (coronary artery disease) Priority: Secondary Status: Chronic (9) Severe protein-calorie malnutrition Priority: Secondary Status: Chronic Prognosis: Poor Aware of Diagnosis: Patient Aware of Prognosis: Patient - Transfer Medications Prescriptions: levoFLOXacin [Levaquin] 750 mg PO DAILY 5 Days #5 tablet GuaiFENesin ER [Mucinex] 600 mg PO BID PRN #30 tbbp.12hr PRN Reason: Congestion Oxycodone HCl/Acetaminophen [Percocet 5-325 mg Tablet] 1 tab PO Q4H PRN 3 Days #12 tablet PRN Reason: Pain predniSONE [PredniSONE] 40 mg PO DAILY #11 tablet Rivaroxaban [Xarelto] 15 mg PO BIDWM #37 tablet Rivaroxaban [Xarelto] 20 mg PO 1700 #30 tablet Home Medications: Atorvastatin Calcium [Lipitor] 80 mg PO HS 11/13/18 [History] Bupropion HCl [Wellbutrin Xl] 300 mg PO DAILY 02/10/19 [History] Buspirone HCl [Buspar] 15 mg PO BID 02/10/19 [History] Folic Acid 1 mg PO DAILY 02/10/19 [History] Ipratropium/Albuterol Neb [Duoneb] 3 ml IH Q8HR PRN 02/10/19 [History] Levothyroxine [Synthroid] 50 mcg PO QAM 02/10/19 [History] Metoprolol XL (24 HR) Succ [Toprol Xl] 25 mg PO DAILY 02/10/19 [History] Sertraline [Zoloft] 50 mg PO DAILY 02/10/19 [History] GuaiFENesin ER [Mucinex] 600 mg PO BID PRN #30 tbbp.12hr 02/15/19 [Rx] Oxycodone HCl/Acetaminophen [Percocet 5-325 mg Tablet] 1 tab PO Q4H PRN 3 Days #12 tablet 02/15/19 [Rx] Rivaroxaban [Xarelto] 15 mg PO BIDWM #37 tablet 02/15/19 [Rx] Rivaroxaban [Xarelto] 20 mg PO 1700 #30 tablet 02/15/19 [Rx] levoFLOXacin [Levaquin] 750 mg PO DAILY 5 Days #5 tablet 02/15/19 [Rx] predniSONE [PredniSONE] 40 mg PO DAILY #11 tablet 02/15/19 [Rx] Allergies/Adverse Reactions: Allergy/AdvReac Type Severity Reaction Status Date / Time No Known Allergies Allergy Verified 01/29/19 13:07 - Respiratory Orders Oxygen / L per min (2-3L continuous, PRN BiPaP) Smoking Cessation: Smoking cessation has been advised. For more information, call the [employer] Tobacco Quit Line at 1-495-LVAS-NOW. - Advance Directives Code Status: DNR-Arrest/Don't Intubate - Rehabiliation Orders Rehab Orders: Evaluation for Physical Therapy, Evaluation for Occupational Therapy - Diet Orders Regular CERTIFICATION: I certify that the transfer of the above named patient to an Extended Care Facility is necessary for the continuing treatment of the diagnosis listed. The above information is true and accurate reflection of patient's current condition. Confidential - Redisclosure prohibited without a patient's written consent.
[2019-02-15 16:19] VITALS: BP 114/68
[2019-03-06] MEDS ORDERED: *HR* Rivaroxaban 10 MG TABLET PO SCH (17:00)
== END 2019-02-15 17:45 | DRG 205 ==
LOC: 2ANU → SUATTDRO 17:59
PROVIDERS: ADMIT Internal Medicine Nephrology; ATTEND Internal Medicine